=== PATIENT | female | born 1975 | race Caucasian/White ===

== ENCOUNTER → 2017-05-30 09:03 | Outpatient (CLI) | payer MEDICAID, SELFPAY ==
--- NOTE | 2017-05-30 | XR_ITS ---
XR ankle RT min 3V HISTORY: Ankle pain ITS.REASON: B/L PTTD..DA...HT ORDERING PHYSICIAN: Megan Ruggiero DPM PATIENT AGE: 42 years COMPARISON: None FINDINGS: Weightbearing views are performed. There is an old fracture of the distal shaft of the fibula which is well healed. Prominent osteophyte is present along the anterior aspect of the distal tibia. The joint space of the ankle is well preserved. No acute fracture or dislocation. IMPRESSION: 1. Old fibular shaft fracture. 2. Osteophyte along the anterior distal tibia
--- NOTE | 2017-05-30 | XR_ITS ---
XR foot RT min 3V HISTORY: Foot pain ORDERING PHYSICIAN: Megan Ruggiero DPM PATIENT AGE: 42 years COMPARISON: None FINDINGS: Weightbearing views are performed. No fracture of the distal shaft of the fibula. Prominent osteophyte projects off the distal tibia anteriorly. There is moderate pes planus with a reversed Mearys angle. There is mild flexion deformity of the second through fourth toes. No fracture or dislocation. No lytic or blastic change. IMPRESSION: 1. Pes planus. 2. Hammertoe deformity second third and fourth toes. 3. Prominent osteophyte along the anterior distal tibia
--- NOTE | 2017-05-30 | XR_ITS ---
XR foot LT min 3V HISTORY: Foot pain ITS.REASON: B/L PTTD..DA..HT ORDERING PHYSICIAN: Megan Ruggiero DPM PATIENT AGE: 42 years COMPARISON: None FINDINGS: Weightbearing views are performed. There is moderate hammertoe deformity of the third, fourth, and fifth toes. No fracture or dislocation. Mild pes planus. IMPRESSION: Pes planus with hammertoe deformity
--- NOTE | 2017-05-30 | XR_ITS ---
XR ankle LT min 3V HISTORY: Ankle pain ORDERING PHYSICIAN: Megan Ruggiero DPM PATIENT AGE: 42 years COMPARISON: None FINDINGS: Weightbearing views are performed No fracture or dislocation. No lytic or blastic change. There is normal mineralization.. The joint spaces are well-preserved. No significant degenerative/arthritic changes. No erosive changes evident. IMPRESSION: Negative ankle, no acute finding
== END ==
PROVIDERS: PCP Internal Medicine Adolescent Medicine; Visit Provider Podiatrist
DX: M79.671 Pain in right foot (principal); M21.41 Flat foot [pes planus] (acquired), right foot; M21.42 Flat foot [pes planus] (acquired), left foot; M19.071 Primary osteoarthritis, right ankle and foot
CPT/HCPCS: 73610; 73630

== ENCOUNTER → 2017-11-03 10:05 | Outpatient (CLI) | payer MEDICAID, SELFPAY ==
[2017-11-03 10:52] LABS: Basophils # 0.1 K/mm3 (0-0.2); Eosinophils # 0.2 K/mm3 (0.0-0.4); Eosinophils % 2.8 % (0.1-12.0); Hematocrit 30.6 % (37.0-47.0); Hemoglobin 9.1 g/dL (12.2-16.2); Lymphocytes # 1.5 K/mm3 (0.7-4.5); Lymphocytes % 27.7 K/mm3 (10-50); Mean Corpuscular HGB Conc 29.7 g/dL (31.8-35.4); Mean Corpuscular Hemoglobin 21.9 pg (27.0-31.2); Mean Corpuscular Volume 73.8 fl (81-99); Mean Platelet Volume 7.2 fl (7.4-10.4); Monocytes # 0.3 K/mm3 (0.1-1.0); Monocytes % 5.4 % (1.7-9.3); Neutrophils # 3.5 K/mm3 (1.8-7.8); Neutrophils % 63.1 % (37.0-80.0); Platelet Count 471 K/mm3 (142-424); Red Blood Count 4.14 M/mm3 (4.20-5.40); Red Cell Distribution Width 17.8 % (11.5-17.5); White Blood Count 5.5 K/mm3 (4.8-10.8)
[2017-11-03 11:22] LABS: Alanine Aminotransferase 19 U/L (12-78); Albumin Level 3.2 gm/dL (3.4-5.0); Albumin/Globulin Ratio 0.9 (1.1-1.8); Alkaline Phosphatase 108 U/L (46-116); Aspartate Amino Transferase 10 U/L (15-37); Bilirubin,Total 0.2 mg/dL (0.2-1.0); Blood Urea Nitrogen 5 mg/dL (7-18); Calcium 8.8 mg/dL (8.5-10.1); Carbon Dioxide 25 mmol/L (21.0-32.0); Chloride 107 mmol/L (98-107); Chol/HDL Ratio 2.6 (1-3.5); Cholesterol 151 mg/dL (140-200); Creatinine,Serum 0.75 mg/dL (0.55-1.02); Estimated Glomerular Filt Rate 84 ml/min (>60); Free Thyroxine Index 2.3 ug/dL (5.93-13.13); GFR (African American) 102 ML/MIN (>60); Globulin 3.6 gm/dl (1.3-3.2); Glucose 88 mg/dL (74-106); HDL Cholesterol 59 mg/dL (29-89); LDL Cholesterol 73 mg/dL (0-130); Sodium 141 mmol/L (136-145); T4 (Thyroxine) 7.2 ug/dl (4.7-13.3); Total Protein,Serum 6.8 gm/dL (6.4-8.2); Triglycerides 97 mg/dL (30-200); Triiodothryronine (T3) Uptake 32 % (31-39); VLDL Cholesterol 19 mg/dL (0-40)
[2017-11-04 18:30] LABS: Vitamin B12 382 pg/mL (232-1245); Vitamin D 25 Hydroxy 23.8 ng/mL (30.0-100.0)
== END ==
PROVIDERS: Visit Provider Nurse Practitioner Family
DX: Z00.00 Encounter for general adult medical examination without abnormal findings (principal); E03.9 Hypothyroidism, unspecified; E55.9 Vitamin D deficiency, unspecified; E53.8 Deficiency of other specified B group vitamins; Z68.35 Body mass index [BMI] 35.0-35.9, adult
CPT/HCPCS: 36415; 80053; 80061; 82607; 82652; 84436; 84443; 84479; 85025

== ENCOUNTER → 2018-03-22 10:51 | Outpatient (POV) | payer MEDICAID, SELFPAY | PROVIDERS: Visit Provider Podiatrist | DX: Z00.00 Encounter for general adult medical examination without abnormal findings (principal) ==

== ENCOUNTER → 2020-12-22 09:50 | Outpatient (CLI) | payer OTHER, SELFPAY ==
[2020-12-22 11:50] LABS: HCG,Quantitative 3 mIU/ml (0-5.42)
== END ==
PROVIDERS: Visit Provider Nurse Practitioner Obstetrics & Gynecology
DX: N92.6 Irregular menstruation, unspecified (principal)
CPT/HCPCS: 36415; 84702

== ENCOUNTER → 2021-02-04 10:52 | Outpatient (CLI) | payer OTHER, SELFPAY | PROVIDERS: Visit Provider Nurse Practitioner | DX: Z20.822 Contact with and (suspected) exposure to COVID-19 (principal) | CPT/HCPCS: C9803; U0003; U0005 ==

== ENCOUNTER → 2021-02-08 10:32 | Outpatient (CLI) | payer OTHER, SELFPAY ==
[2021-02-08 10:55] LABS: Basophils # 0.1 K/mm3 (0-0.2); Basophils % 0.9 % (0.1-2.0); Eosinophils # 0.3 K/mm3 (0.0-0.4); Eosinophils % 3.2 % (0.1-12.0); Hematocrit 35.2 % (37.0-47.0); Hemoglobin 10.4 g/dL (12.2-16.2); Lymphocytes # 2.4 K/mm3 (0.7-4.5); Lymphocytes % 30.3 % (10-50); Mean Corpuscular HGB Conc 29.6 g/dL (31.8-35.4); Mean Corpuscular Hemoglobin 22.7 pg (27.0-31.2); Mean Corpuscular Volume 76.8 fl (81-99); Mean Platelet Volume 7.5 fl (7.4-10.4); Monocytes # 0.4 K/mm3 (0.1-1.0); Monocytes % 5.3 % (1.7-9.3); Neutrophils # 4.7 K/mm3 (1.8-7.8); Neutrophils % 60.2 % (37.0-80.0); Platelet Count 452 K/mm3 (142-424); Red Blood Count 4.59 M/mm3 (4.20-5.40); Red Cell Distribution Width 18.2 % (11.5-17.5); White Blood Count 7.8 K/mm3 (4.8-10.8)
[2021-02-08 11:56] LABS: Chloride 103 mmol/L (98-107)
[2021-02-08 11:57] LABS: Potassium 4.7 mmoL/L (3.5-5.1); Sodium 140 mmol/L (136-145)
[2021-02-08 11:59] LABS: Blood Urea Nitrogen 6 mg/dl (7-17)
[2021-02-08 12:00] LABS: Alanine Aminotransferase 19 U/L (12-78); Albumin Level 4.1 g/dl (3.5-5.0); Albumin/Globulin Ratio 1.4 (1.1-1.8); Alkaline Phosphatase 109 U/L (38-126); Anion Gap 14.7 mEq/L (5-15); Aspartate Amino Transferase 31 U/L (14-36); Calcium 9.5 mg/dl (8.4-10.2); Carbon Dioxide 27 mmol/L (22.0-30.0); Chol/HDL Ratio 2.6 (1-3.5); Cholesterol 168 mg/dl (140-200); Estimated Glomerular Filt Rate 108 ml/min (>60); GFR (African American) 130 ML/MIN (>60); Glucose 95 mg/dl (74-100); HDL Cholesterol 65 mg/dl (40-60); Total Protein,Serum 7.1 g/dl (6.3-8.2); Triglycerides 97 mg/dl (30-150); VLDL Cholesterol 19 mg/dL (0-40)
[2021-02-08 12:08] LABS: Bilirubin,Total 0.1 mg/dl (0.2-1.3)
[2021-02-08 12:11] LABS: Direct LDL Cholesterol 77.03 mg/dL (100-129)
[2021-02-08 12:16] LABS: Free T4 (Free Thyroxine) 0.93 ng/dl (0.78-2.19)
[2021-02-08 12:31] LABS: Thyroid Stimulating Hormone 9.74 uIU/mL (0.465-4.68)
[2021-02-08 14:57] LABS: Vitamin B12 789 pg/mL (239-931)
== END ==
PROVIDERS: Visit Provider Nurse Practitioner Family
DX: Z00.00 Encounter for general adult medical examination without abnormal findings (principal); E03.9 Hypothyroidism, unspecified; D50.9 Iron deficiency anemia, unspecified; E53.8 Deficiency of other specified B group vitamins; E55.9 Vitamin D deficiency, unspecified
CPT/HCPCS: 36415; 80053; 80061; 82306; 82607; 84439; 84443; 85025

== ENCOUNTER → 2021-05-06 08:56 | Outpatient (CLI) | payer OTHER, SELFPAY | PROVIDERS: PCP Internal Medicine Adolescent Medicine; Visit Provider Nurse Practitioner | DX: Z20.822 Contact with and (suspected) exposure to COVID-19 (principal) | CPT/HCPCS: C9803; U0003; U0005 ==

== ENCOUNTER → 2021-11-08 15:28 | Outpatient (CLI) | payer OTHER, SELFPAY ==
--- NOTE | 2021-11-08 15:31 | XR_ITS ---
FINAL REPORT CLINICAL HISTORY: pain FINDINGS: LEFT FOOT Three views of the left foot demonstrate no acute fracture or dislocation. There is mild multi joint degenerative disease. On the lateral view there is collapse of the midfoot arch. The soft tissues are unremarkable. IMPRESSION: No acute osseous abnormality. Mild degenerative disease with collapse of midfoot arch. Reviewed, Interpreted and Dictated by Sharlene Lui MD Transcribed by Cristel Liu Authenticated and [facility]
--- NOTE | 2021-11-08 15:31 | XR_ITS ---
FINAL REPORT CLINICAL HISTORY: pain FINDINGS: RIGHT FOOT Three views of the right foot demonstrate no acute fracture or dislocation. There is mild multi joint degenerative disease. On the lateral view there is early collapse of the midfoot arch, less severe on the right than on the left. The soft tissues are unremarkable. IMPRESSION: No acute osseous abnormality. Mild degenerative disease with early collapse of midfoot arch. Reviewed, Interpreted and Dictated by Sharlene Lui MD Transcribed by Cristel Liu Authenticated and [facility]
== END ==
PROVIDERS: PCP Internal Medicine Adolescent Medicine; Visit Provider Podiatrist
DX: M79.671 Pain in right foot (principal); M20.41 Other hammer toe(s) (acquired), right foot; M79.672 Pain in left foot; M20.42 Other hammer toe(s) (acquired), left foot
CPT/HCPCS: 73630

== ENCOUNTER → 2021-11-11 10:34 | Outpatient (CLI) | payer OTHER, SELFPAY ==
--- NOTE | 2021-11-11 10:34 | US_ITS ---
FINAL REPORT CLINICAL HISTORY: skin changes, cold extremities, surgical planning(FOOT SURGERY) FINDINGS: ANKLE/BRACHIAL INDICES FINDINGS: Pressure indices are as follows: RIGHT LOWER EXTREMITY: Ankle brachial pressure index: 1.15 Comments: Normal LEFT LOWER EXTREMITY: Ankle brachial pressure index: 1.21 Comments: Normal IMPRESSION: No evidence of significant obstructive peripheral vascular disease of the lower extremities. Reviewed, Interpreted and Dictated by Sharlene Lui MD Transcribed by Frederic Andrade Authenticated and [facility]
== END ==
PROVIDERS: PCP Internal Medicine Adolescent Medicine; Visit Provider Podiatrist
DX: R09.89 Other specified symptoms and signs involving the circulatory and respiratory systems (principal); R20.9 Unspecified disturbances of skin sensation
CPT/HCPCS: 93923

== ENCOUNTER → 2022-04-27 14:44 | Outpatient (CLI) | payer OTHER, SELFPAY ==
--- NOTE | 2022-04-27 | CA_ITS ---
FINAL REPORT TECHNIQUE: Color Doppler, duplex Doppler and compression sonography of the right lower extremity venous system was performed. CLINICAL HISTORY: RT ANKLE REDNESS WITH EDEMA, S/P INJURY FINDINGS: There is no evidence of deep venous thrombosis from the level of the groin to the calf. The veins are patent and compressible. IMPRESSION: No evidence of deep venous thrombosis right lower extremity. Reviewed, Interpreted and Dictated by Declan Omer III, MD Transcribed by Iris Rowan Authenticated and [facility]
--- NOTE | 2022-04-27 15:19 | XR_ITS ---
FINAL REPORT CLINICAL HISTORY: RT LEG PAIN, hx of fx FINDINGS: Right tibia fibula Two views were obtained. There is no acute fracture or dislocation. There is a chronic distal fibular fracture. There are mild degenerative changes of the ankle. There is small chronic calcification inferior to the medial malleolus. IMPRESSION: Degenerative and chronic appearing findings. Reviewed, Interpreted and Dictated by Declan Omer III, MD Transcribed by Iris Rowan Authenticated and [facility]
== END ==
LOC: RT 14:45 → RAD 15:15
PROVIDERS: PCP Internal Medicine Adolescent Medicine; Visit Provider Nurse Practitioner Family
DX: M79.604 Pain in right leg (principal); M79.89 Other specified soft tissue disorders
CPT/HCPCS: 73590; 93971

== ENCOUNTER → 2022-09-23 09:51 | Outpatient (CLI) | payer OTHER, SELFPAY ==
[2022-09-23 10:47] LABS: Basophils % 0.7 % (0.1-2.0); Eosinophils # 0.1 K/mm3 (0.0-0.4); Eosinophils % 1.4 % (0.1-12.0); Hematocrit 40.4 % (37.0-47.0); Hemoglobin 12.8 g/dL (12.2-16.2); Lymphocytes # 1.9 K/mm3 (0.7-4.5); Lymphocytes % 29.4 % (10-50); Mean Corpuscular HGB Conc 31.6 g/dL (31.8-35.4); Mean Corpuscular Hemoglobin 27.5 pg (27.0-31.2); Mean Corpuscular Volume 86.9 fl (81-99); Monocytes # 0.3 K/mm3 (0.1-1.0); Monocytes % 5.1 % (1.7-9.3); Neutrophils # 4.1 K/mm3 (1.8-7.8); Neutrophils % 63.3 % (37.0-80.0); Platelet Count 348 K/mm3 (142-424); Red Blood Count 4.65 M/mm3 (4.20-5.40); Red Cell Distribution Width 15.3 % (11.5-17.5); White Blood Count 6.5 K/mm3 (4.8-10.8)
[2022-09-23 11:07] LABS: Chloride 104 mmol/L (98-107); Sodium 141 mmol/L (136-145)
[2022-09-23 11:09] LABS: Blood Urea Nitrogen 14 mg/dl (7-17); Estimated Glomerular Filt Rate 77 ml/min (>60); GFR (African American) 93 ML/MIN (>60)
[2022-09-23 11:10] LABS: Alanine Aminotransferase 18 U/L (12-78); Albumin Level 4.2 g/dl (3.5-5.0); Albumin/Globulin Ratio 1.4 (1.1-1.8); Alkaline Phosphatase 103 U/L (38-126); Aspartate Amino Transferase 23 U/L (14-36); Bilirubin,Total 0.2 mg/dl (0.2-1.3); Carbon Dioxide 28 mmol/L (22.0-30.0); Total Protein,Serum 7.2 g/dl (6.3-8.2)
[2022-09-23 11:11] LABS: Calcium 9.4 mg/dl (8.4-10.2); Glucose 93 mg/dl (74-100)
[2022-09-23 11:41] LABS: Thyroid Stimulating Hormone 3.95 uIU/mL (0.465-4.68)
[2022-09-23 12:09] LABS: 25-OH Vitamin D, Total 36.7 ng/mL (30-100)
[2022-09-23 12:41] LABS: Vitamin B12 471 pg/mL (239-931)
== END ==
PROVIDERS: PCP Internal Medicine Adolescent Medicine; Visit Provider Nurse Practitioner Family
DX: E03.9 Hypothyroidism, unspecified (principal); E53.8 Deficiency of other specified B group vitamins; E55.9 Vitamin D deficiency, unspecified
CPT/HCPCS: 36415; 80053; 82306; 82607; 84443; 85025

== ENCOUNTER → 2022-09-27 12:01 | Outpatient (CLI) | payer OTHER, SELFPAY ==
--- NOTE | 2022-09-27 12:18 | XR_ITS ---
FINAL REPORT CLINICAL HISTORY: LEFT ANTERIOR PAIN FINDINGS: 3 views of the left knee were obtained. There is no acute fracture or dislocation. There are mild degenerative changes. There is a moderate joint effusion. IMPRESSION: Moderate joint effusion. No acute bony abnormality. Reviewed, Interpreted and Dictated by Declan Omer III, MD Transcribed by Frederic Andrade Authenticated and [facility]
[2022-09-27 12:34] LABS: Basophils # 0.1 K/mm3 (0-0.2); Basophils % 0.9 % (0.1-2.0); Eosinophils # 0.1 K/mm3 (0.0-0.4); Eosinophils % 2.5 % (0.1-12.0); Hematocrit 40.6 % (37.0-47.0); Hemoglobin 12.6 g/dL (12.2-16.2); Lymphocytes # 1.8 K/mm3 (0.7-4.5); Lymphocytes % 30.8 % (10-50); Mean Corpuscular HGB Conc 30.9 g/dL (31.8-35.4); Mean Corpuscular Hemoglobin 26.9 pg (27.0-31.2); Mean Platelet Volume 8.7 fl (7.4-10.4); Monocytes # 0.3 K/mm3 (0.1-1.0); Monocytes % 4.9 % (1.7-9.3); Neutrophils # 3.6 K/mm3 (1.8-7.8); Platelet Count 342 K/mm3 (142-424); Red Blood Count 4.67 M/mm3 (4.20-5.40); Red Cell Distribution Width 15.4 % (11.5-17.5); White Blood Count 5.9 K/mm3 (4.8-10.8)
[2022-09-27 12:44] LABS: Uric Acid 4.9 mg/dl (2.5-6.2)
[2022-09-27 12:48] LABS: C-Reactive Protein 6.6 mg/L (0-4)
[2022-09-27 13:22] LABS: Erythrocyte Sedimentation Rate 22 mm/hr (0-20)
== END ==
PROVIDERS: PCP Nurse Practitioner Family; Visit Provider Nurse Practitioner Family
DX: M25.562 Pain in left knee (principal); M25.462 Effusion, left knee
CPT/HCPCS: 36415; 73562; 84550; 85025; 85651; 86140

== ENCOUNTER → 2022-10-10 15:27 | Outpatient (CLI) | payer OTHER, SELFPAY ==
--- NOTE | 2022-10-10 15:30 | MR_ITS ---
FINAL REPORT CLINICAL HISTORY: Lt knee pain. LEFT KNEE PAIN WORSE ON LATERAL SIDE. NO INJURY OR TRAUMA. KNEE INSTABILITY. FINDINGS: Multiplanar MR imaging of the left knee was performed without contrast. There is a tear of the posterior horn of the lateral meniscus. The medial meniscus is intact. The anterior and posterior cruciate ligaments are intact. The medial collateral ligament and lateral ligamentous complex are intact. The patellar and quadriceps tendons are intact. There is no evidence of fracture. There are mild degenerative changes with moderate chondromalacia. A moderate sized joint effusion is seen. The musculature is intact. There are multiple posterior ganglion cysts measuring up to 13 mm. IMPRESSION: Tear of the posterior horn of the lateral meniscus. Posterior ganglion cysts measuring 13 mm. Mild degenerative changes with moderate chondromalacia. Moderate joint effusion. Reviewed, Interpreted and Dictated by Declan Omer III, MD Transcribed by Pia Hooper Authenticated and [facility]
== END ==
PROVIDERS: PCP Nurse Practitioner Family; Visit Provider Orthopaedic Surgery
DX: M25.562 Pain in left knee (principal)
CPT/HCPCS: 73721

== ENCOUNTER 2022-10-19 10:58 | Outpatient (RCR) | payer OTHER, SELFPAY | END 2022-10-19 12:00 | disposition home or self-care (01) | LOC: PT 10:58 | PROVIDERS: Visit Provider Orthopaedic Surgery | DX: M17.12 Unilateral primary osteoarthritis, left knee (principal); M23.92 Unspecified internal derangement of left knee; S83.282A Other tear of lateral meniscus, current injury, left knee, initial encounter | CPT/HCPCS: 97760 ==

== ENCOUNTER → 2022-10-27 09:45 | Outpatient (CLI) | payer OTHER, SELFPAY ==
--- NOTE | 2022-10-27 09:49 | CA_ITS ---
FINAL REPORT TECHNIQUE: Color Doppler, duplex Doppler and compression sonography of the right lower extremity venous system was performed. CLINICAL HISTORY: .EDEMA PAIN LOWER LEG ANKLE COMPARISON: None FINDINGS: There is no evidence of deep venous thrombosis from the level of the groin to the calf. The veins are patent and compressible. IMPRESSION: No evidence of deep venous thrombosis right lower extremity. Reviewed, Interpreted and Dictated by Declan Omer III, MD Transcribed by Sarahy Jeffrey Authenticated and [facility]
== END ==
PROVIDERS: PCP Nurse Practitioner Family; Visit Provider Nurse Practitioner Family
DX: M79.661 Pain in right lower leg (principal)
CPT/HCPCS: 93971

== ENCOUNTER → 2022-11-08 10:10 | Outpatient (CLI) | payer OTHER, SELFPAY ==
--- NOTE | 2022-11-08 10:23 | XR_ITS ---
FINAL REPORT CLINICAL HISTORY: Ankle Pain FINDINGS: RIGHT ANKLE: Three weightbearing views of the right ankle were obtained. There is no acute fracture or dislocation. Moderate degenerative change. Mortise is intact. Old healed fracture of the distal fibula. There is no soft tissue abnormality. IMPRESSION: Moderate degenerative change. Reviewed, Interpreted and Dictated by Gwyn Olivo MD Transcribed by Frederic Andrade Authenticated and [facility]
--- NOTE | 2022-11-08 10:23 | XR_ITS ---
FINAL REPORT CLINICAL HISTORY: swelling FINDINGS: RIGHT CALCANEUS 2 views were obtained. There is no acute fracture. No significant spurring or erosion. There is no soft tissue abnormality. IMPRESSION: No acute process. Reviewed, Interpreted and Dictated by Gwyn Olivo MD Transcribed by Frederic Andrade Authenticated and [facility]
--- NOTE | 2022-11-08 10:23 | XR_ITS ---
FINAL REPORT CLINICAL HISTORY: Foot Pain FINDINGS: 3 weightbearing views of the right foot were obtained. There is no acute fracture or dislocation. Severe pes planus deformity. Moderate degenerative change of the subtalar and talonavicular joints. Hammertoe deformity involving the first through fifth digits. IMPRESSION: Moderate degenerative changes. Reviewed, Interpreted and Dictated by Gwyn Olivo MD Transcribed by Frederic Andrade Authenticated and . [facility]
[2022-11-08 10:26] LABS: Basophils # 0.1 K/mm3 (0-0.2); Basophils % 1.1 % (0.1-2.0); Eosinophils # 0.2 K/mm3 (0.0-0.4); Eosinophils % 2.5 % (0.1-12.0); Hemoglobin 13.8 g/dL (12.2-16.2); Lymphocytes # 1.7 K/mm3 (0.7-4.5); Lymphocytes % 26.5 % (10-50); Mean Corpuscular HGB Conc 32.1 g/dL (31.8-35.4); Mean Corpuscular Volume 87.3 fl (81-99); Monocytes # 0.4 K/mm3 (0.1-1.0); Monocytes % 5.8 % (1.7-9.3); Neutrophils # 4.1 K/mm3 (1.8-7.8); Neutrophils % 64.1 % (37.0-80.0); Platelet Count 351 K/mm3 (142-424); Red Blood Count 4.93 M/mm3 (4.20-5.40); Red Cell Distribution Width 14.7 % (11.5-17.5); White Blood Count 6.4 K/mm3 (4.8-10.8)
[2022-11-08 11:19] LABS: Alanine Aminotransferase 19 U/L (12-78); Albumin/Globulin Ratio 1.4 (1.1-1.8); Alkaline Phosphatase 119 U/L (38-126); Anion Gap 9.9 mEq/L (5-15); Aspartate Amino Transferase 21 U/L (14-36); Bilirubin,Total 0.3 mg/dl (0.2-1.3); Blood Urea Nitrogen 17 mg/dl (7-17); Calcium 9.4 mg/dl (8.4-10.2); Carbon Dioxide 32 mmol/L (22.0-30.0); Chloride 102 mmol/L (98-107); Estimated Glomerular Filt Rate 77 ml/min (>60); GFR (African American) 93 ML/MIN (>60); Globulin 2.8 g/dL (1.3-3.2); Glucose 97 mg/dl (74-100); Potassium 3.9 mmoL/L (3.5-5.1); Sodium 140 mmol/L (136-145); Total Protein,Serum 6.8 g/dl (6.3-8.2); Uric Acid 6.8 mg/dl (2.5-6.2)
[2022-11-08 11:24] LABS: C-Reactive Protein 9.6 mg/L (0-4)
[2022-11-08 11:27] LABS: Erythrocyte Sedimentation Rate 18 mm/hr (0-20)
[2022-11-08 11:49] LABS: Thyroid Stimulating Hormone 2.82 uIU/mL (0.465-4.68)
[2022-11-08 12:26] LABS: Vitamin B12 516 pg/mL (239-931)
[2022-11-08 12:34] LABS: Folate 5.01 ng/mL
[2022-11-08 14:17] LABS: Hemoglobin A1C 5.3 % (4.0-6.0)
[2022-11-09 16:19] LABS: RA Latex Turbid. <10.0 IU/mL (<14.0)
[2022-11-10 11:14] LABS: Antinuclear Antibodies, IFA Negative (.)
[2022-11-16 22:18] LABS: 1,25 Dihydroxy Vitamin D 57 pg/mL (.); 1,25-Dihydroxy, Vitamin D-2 <10 pg/mL (.); 1,25-Dihydroxy, Vitamin D-3 57 pg/mL (.)
== END ==
PROVIDERS: PCP Internal Medicine Adolescent Medicine; Visit Provider Podiatrist
DX: R60.9 Edema, unspecified (principal); M79.671 Pain in right foot; M25.571 Pain in right ankle and joints of right foot; E66.9 Obesity, unspecified; Z68.31 Body mass index [BMI] 31.0-31.9, adult; R79.82 Elevated C-reactive protein (CRP)
CPT/HCPCS: 36415; 73610; 73630; 73650; 80053; 82607; 82652; 82746; 83036; 84443; 84550; 85025; 85651; 86038; 86140; 86431

== ENCOUNTER → 2022-11-17 09:45 | Outpatient (CLI) | payer OTHER, SELFPAY ==
--- NOTE | 2022-11-17 09:55 | ECG_ITS ---
APPROVED REPORT Exam: Resting ECG HR:54 bpm ECG Measurements Heart Rate 54 AXES PA 143 P 47 QRSd 94 QRS 54 QT 415 T 55 QTc 402 Conclusion SINUS BRADYCARDIA MINIMAL ST DEPRESSION [0.025+ mV ST DEPRESSION] BORDERLINE ECG UNCONFIRMED REPORT Electronically signed by : Santhosh Ward MD 11/18/2022 17:45:42
--- NOTE | 2022-11-17 09:58 | XR_ITS ---
FINAL REPORT CLINICAL HISTORY: Pre op knee surgery , smoker FINDINGS: Two views of the chest were obtained. The heart size and pulmonary vascularity are within normal limits. The mediastinum is normal. No acute pulmonary abnormality is identified. There is no pneumothorax. The bony thorax is intact. IMPRESSION: No active cardiopulmonary disease. Reviewed, Interpreted and Dictated by Declan Omer III, MD Transcribed by Iris Rowan Authenticated and . [facility]
[2022-11-17 10:52] LABS: Basophils % 0.7 % (0.1-2.0); Eosinophils # 0.2 K/mm3 (0.0-0.4); Eosinophils % 4.1 % (0.1-12.0); Hematocrit 40.3 % (37.0-47.0); Hemoglobin 12.8 g/dL (12.2-16.2); Lymphocytes # 1.7 K/mm3 (0.7-4.5); Lymphocytes % 33.6 % (10-50); Mean Corpuscular HGB Conc 31.8 g/dL (31.8-35.4); Mean Corpuscular Hemoglobin 27.4 pg (27.0-31.2); Mean Corpuscular Volume 85.9 fl (81-99); Mean Platelet Volume 8.5 fl (7.4-10.4); Monocytes # 0.4 K/mm3 (0.1-1.0); Monocytes % 7.2 % (1.7-9.3); Neutrophils # 2.7 K/mm3 (1.8-7.8); Neutrophils % 54.4 % (37.0-80.0); Platelet Count 306 K/mm3 (142-424); Red Blood Count 4.69 M/mm3 (4.20-5.40); Red Cell Distribution Width 14.9 % (11.5-17.5)
[2022-11-17 11:18] LABS: Hemoglobin A1C 5.2 % (4.0-6.0)
[2022-11-17 11:44] LABS: Alanine Aminotransferase 20 U/L (12-78); Albumin Level 3.9 g/dl (3.5-5.0); Albumin/Globulin Ratio 1.4 (1.1-1.8); Alkaline Phosphatase 114 U/L (38-126); Aspartate Amino Transferase 25 U/L (14-36); Bilirubin,Total 0.2 mg/dl (0.2-1.3); Blood Urea Nitrogen 11 mg/dl (7-17); Calcium 9.4 mg/dl (8.4-10.2); Carbon Dioxide 30 mmol/L (22.0-30.0); Chloride 105 mmol/L (98-107); Estimated Glomerular Filt Rate 89 ml/min (>60); GFR (African American) 108 ML/MIN (>60); Globulin 2.8 g/dL (1.3-3.2); Glucose 96 mg/dl (74-100); Sodium 141 mmol/L (136-145); Total Protein,Serum 6.7 g/dl (6.3-8.2)
== END ==
LOC: LAB 09:45
PROVIDERS: PCP Internal Medicine Adolescent Medicine; Visit Provider Orthopaedic Surgery
DX: Z01.818 Encounter for other preprocedural examination (principal); S83.282A Other tear of lateral meniscus, current injury, left knee, initial encounter
CPT/HCPCS: 36415; 71046; 80053; 83036; 85025; 93005

== ENCOUNTER 2022-11-22 08:48 | Day surgery (SDC) | payer OTHER, SELFPAY ==
[2022-11-18 12:36] VITALS: BMI 31.1
[2022-11-22] VITALS (11 sets, daily range): BP systolic 110–155; BP diastolic 57–99; PULSE 62–76; RESP 15–18; TEMP 36.2–43; O2SAT 93–100
--- NOTE | 2022-11-22 09:38 | P.PNANES_ITS ---
[facility] Disclaimer: The information contained in this section may have been updated after the patient was seen, as this information can be updated by other users. Medical History Allergies History of anemia History of COVID-19 Hypertension Hypothyroid Surgical History History of cholecystectomy Family History Other Family history of cancer Family history of diabetes mellitus type II Social History Smoking Status: Current every day smoker tobacco type: cigarettes packs per day: 1 alcohol intake: current counseling provided: none substance use type: denies use current occupational status: employed Travel in the last 8 weeks: None [facility] Anesthesia Checklist Patient Identification Patient Identification: Arm Band Structural Data Admitted From: Home Planned Operative Procedure/s: Left Knee Arthroscopy, Parial Lateral Meniscectomy Consent for Planned Operative Procedure(s) Verified: Yes Verified Documents: Surgical Consent and History and Physical NPO Status Verified Time NPO: 00:00 Additional verifications Anesthesia Reactions: No Hx Blood Transfusions: No Airway Assessment Mallampati Score:: Class II C-Spine Mobility Assessed: Yes TMJ Mobility Assessed: Yes Dentition: Good Dentition Neurological Assessment Level of Consciousness: Awake and Alert Anesthesia Plan Anesthesia Risk discussed: Yes Anesthesia Plan: Verified ASA Class: II Anesthesia Type: General
[2022-11-22 09:51] LABS: HCG Qualitative, Serum Negative (Negative)
--- NOTE | 2022-11-22 10:58 | EXP.OP.NOTE ---
Date of procedure: 11/22/22 Pre-op Diagnosis:: Left knee lateral meniscus tear Post-op Diagnosis:: Left knee lateral meniscus tear Procedure performed:: Left knee arthroscopy with partial lateral meniscectomy Surgeon:: Orlin Galan MD Encapsulator(s):: None [employer] TESTING:: Other Anesthesia: GETA and local Estimated blood loss (mL): 5 Clinical Note:: Left knee MRI 10/10/2022 reveals complex tear posterior horn and body of the lateral meniscus with horizontal cleavage component. Mild patellofemoral and lateral compartment chondromalacia. There is a small effusion and ligaments are intact. Lilian is a pleasant 47-year-old female with left knee pain and swelling secondary to exacerbation of underlying mild osteoarthritis and a lateral meniscus tear seen on MRI. She takes meloxicam for ankle pain. 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 No relief with a left knee aspiration and cortisone injection in September. At this point she is reasonable candidate for left knee arthroscopy with partial lateral meniscectomy. We discussed all the risks, benefits and alternatives to surgery and she agrees to proceed. She understands risks to include but are not limited to infection, pain, stiffness, neurovascular injury and medical risks associated with surgery. She understands the rehab course involved. Answered all questions to her satisfaction and she is comfortable with the plan. Surgical consent form was signed. Operative findings:: Left knee complex tear posterior horn and body of the lateral meniscus with horizontal cleavage component. Mild tricompartmental chondromalacia. Operative note:: The patient was seen in the preoperative holding area. The left knee was marked to confirm the correct operative site. She received clindamycin 900 mg IV prophylactic antibiotics within 1 hour of incision time. She was brought back to the OR. General anesthesia induced without difficulty. Left lower extremity prepped and draped in usual sterile fashion. Timeout performed to confirm left knee arthroscopy on patient Lilian Welch. I made an anterolateral viewing portal with an 11 blade scalpel arthroscope was introduced into the knee joint. I then made an anteromedial portal localizing this with a spinal needle and this incision was made with an 11 blade and dilated with a trocar. Diagnostic arthroscopy commenced. She had some mild grade II-III chondromalacia of the trochlea and patella. No full-thickness cartilage loss. This was debrided with the 4.0 mm shaver back to a smooth stable border. Evaluation of the medial compartment revealed small area of grade III-IV chondromalacia central aspect medial femoral condyle. Edges of this were debrided with a shaver back to a smooth stable border. Otherwise minimal chondromalacia in the medial compartment. Medial meniscus was intact. Cruciate ligaments intact. She was placed in the [id number] position. She was seen to have a complex tear of the posterior horn and body of the lateral meniscus with a lot of frayed tissue and a horizontal cleavage component. This was treated with a partial lateral meniscectomy using combination of an upbiter and a 4.0 mm shaver to resect the frayed tissue back to a smooth stable border. Resected the unstable inferior flap component of the horizontal cleavage tear. Debrided some diffuse grade 2-3 chondromalacia of the lateral femoral condyle with the shaver. No full-thickness cartilage loss. At this time arthroscopy instruments were removed from the joint. Scope fluid suctioned and drained from the joint. Portals closed with 4-0 Monocryl subcuticular sutures. I injected 20 cc of half percent Naropin from the superior lateral approach for local anesthetic. Sterile dressings applied with Steri-Strips, 4 x 4's, ABD, soft roll and Freddie bandage. Anesthesia reversed without difficulty. Transferred to recovery in stable condition. Tourniquet time (min): 0 Condition: stable Disposit
--- NOTE | 2022-11-22 11:03 | EXP.ANES.I ---
[facility] Anesthesia Record Part I Anesthesia Record I Intake, IV Amount: 600 Hydration: Adequate Estimated blood loss (mL): 20 Urine output (mL): 0 Blood Products used (#): none Blood Pressure: 128/99 SaO2: 93 Pulse Rate: 76 Airway Patency: Patent Respiratory Rate: 18 Temperature: 97.2 F Pain scale (0-10): 0 Nausea: No Vomiting: No Patient is:: Drowsy and Stable Stable to PACU at:: 10:58
--- NOTE | 2022-11-23 10:37 | P.PNANES_ITS ---
[facility] Anesthesia Record Part II Anesthesia Record Part II Discharge Time: 11:28 Destination: Surgical Day Care (OP Surgery) PACU nurse assessment reviewed?: Yes Patient Condition:: Good Anesthesia Complications:: None Swallowing reflex intact?: Yes Airway Patency: Patent Cyanosis?: No Blood Pressure: 127/82 SaO2: 99 Respiratory Rate: 16 Pulse Rate: 62 Temperature: 97.2 F Mental Status: Alert & Oriented Pain level:: 5 Nausea and/or vomitting:: None Intake, IV Amount: 0 Hydration: Adequate
[2022-11-23 10:38] VITALS: BP 127/82; PULSE 62; RESP 16; TEMP 36.2; O2SAT 99
== END 2022-11-22 12:10 | disposition home or self-care (01) ==
PROVIDERS: PCP Internal Medicine Adolescent Medicine; Visit Provider Orthopaedic Surgery
PROC: (CPT 29870; principal; 2022-11-22 10:15)
DX: S83.282A Other tear of lateral meniscus, current injury, left knee, initial encounter (principal); Z72.0 Tobacco use
CPT/HCPCS: 29881; 84703; 96374; J2405

== ENCOUNTER 2023-05-16 21:09 | Outpatient (CLI) | payer OTHER, SELFPAY | END 2023-05-16 23:59 | LOC: LAB.DROPOF 21:09 | PROVIDERS: PCP Student in an Organized Health Care Education/Training Program; Visit Provider Student in an Organized Health Care Education/Training Program | DX: J02.9 Acute pharyngitis, unspecified (principal); B95.0 Streptococcus, group A, as the cause of diseases classified elsewhere | CPT/HCPCS: 87070 ==

== ENCOUNTER 2023-05-20 12:05 | Outpatient (CLI) | payer OTHER, SELFPAY ==
[2023-05-20 12:24] LABS: Basophils # 0.1 K/mm3 (0-0.2); Basophils % 1.2 % (0.1-2.0); Eosinophils # 0.2 K/mm3 (0.0-0.4); Eosinophils % 2.5 % (0.1-12.0); Hematocrit 40.8 % (37.0-47.0); Hemoglobin 13.4 g/dL (12.2-16.2); Lymphocytes # 2.1 K/mm3 (0.7-4.5); Mean Corpuscular HGB Conc 32.8 g/dL (31.8-35.4); Mean Corpuscular Hemoglobin 29.9 pg (27.0-31.2); Mean Corpuscular Volume 91.1 fl (81-99); Mean Platelet Volume 8.4 fl (7.4-10.4); Monocytes # 0.4 K/mm3 (0.1-1.0); Neutrophils # 5.1 K/mm3 (1.8-7.8); Neutrophils % 64.4 % (37.0-80.0); Platelet Count 423 K/mm3 (142-424); Red Blood Count 4.48 M/mm3 (4.20-5.40); Red Cell Distribution Width 14.6 % (11.5-17.5); White Blood Count 7.9 K/mm3 (4.8-10.8)
[2023-05-20 13:46] LABS: Alanine Aminotransferase 18 U/L (12-78); Albumin Level 3.7 g/dl (3.5-5.0); Albumin/Globulin Ratio 1.3 (1.1-1.8); Alkaline Phosphatase 110 U/L (38-126); Anion Gap 10.2 mEq/L (5-15); Aspartate Amino Transferase 22 U/L (14-36); Bilirubin,Total 0.2 mg/dl (0.2-1.3); Blood Urea Nitrogen 8 mg/dl (7-17); Calcium 9.4 mg/dl (8.4-10.2); Carbon Dioxide 29 mmol/L (22.0-30.0); Chloride 106 mmol/L (98-107); Estimated Glomerular Filt Rate 76 ml/min (>60); GFR (African American) 92 ML/MIN (>60); Globulin 2.8 g/dL (1.3-3.2); Glucose 90 mg/dl (74-100); Potassium 4.2 mmoL/L (3.5-5.1); Sodium 141 mmol/L (136-145); Total Protein,Serum 6.5 g/dl (6.3-8.2)
== END 2023-05-20 23:59 ==
LOC: LAB 12:06
PROVIDERS: Nurse Practitioner Family; PCP Internal Medicine Adolescent Medicine; Visit Provider Internal Medicine Adolescent Medicine
DX: R21 Rash and other nonspecific skin eruption (principal)
CPT/HCPCS: 36415; 80053; 85025; 87070

== ENCOUNTER 2023-09-26 08:50 | Outpatient (CLI) | payer OTHER, SELFPAY ==
--- NOTE | 2023-09-26 08:58 | XR_ITS ---
FINAL REPORT CLINICAL HISTORY: left sided LBP with sciatica COMPARISON: None FINDINGS: THORACIC SPINE SERIES 3 views of the thoracic spine were obtained. There is no fracture present. There is no malalignment. There is S-shaped curvature of the thoracic spine. Moderate degenerative change is noted. IMPRESSION: Degenerative change without acute process LUMBOSACRAL SPINE SERIES Five views of the lumbosacral spine were obtained. Levoscoliosis is noted. There is 11 mm of anterolisthesis of L4 on L5. There is severe L4-5 disc space narrowing. Bilateral L4 pars defects are noted. IMPRESSION: Severe degenerative changes. Bilateral L4 pars defects. Reviewed, Interpreted and Dictated by Declan Omer III, MD Transcribed by Caridad Scruggs Authenticated and [facility]
== END 2023-09-26 23:59 | disposition home or self-care (01) ==
LOC: RAD 08:50
PROVIDERS: PCP Nurse Practitioner Family; Visit Provider Physician Assistant
DX: M54.42 Lumbago with sciatica, left side (principal)
CPT/HCPCS: 72084

== ENCOUNTER 2023-10-13 16:00 | Outpatient (RCR) | payer OTHER, SELFPAY | END 2023-10-13 16:05 | disposition home or self-care (01) | LOC: PT 16:00 | PROVIDERS: Visit Provider Physician Assistant | DX: M54.42 Lumbago with sciatica, left side (principal) | CPT/HCPCS: 97163 ==

== ENCOUNTER 2023-11-28 13:02 | Outpatient (CLI) | payer OTHER, SELFPAY ==
--- NOTE | 2023-11-28 13:05 | XR_ITS ---
FINAL REPORT CLINICAL HISTORY: foot pain COMPARISON: None FINDINGS: LEFT FOOT: Three views of the left foot were obtained. There is no acute fracture or dislocation. A pes planus deformity is present. Mild degenerative change is present. Mild soft tissue calcifications are present as well. IMPRESSION: Mild degenerative change with a pes planus deformity. Reviewed, Interpreted and Dictated by Declan Omer III, MD Transcribed by Sarahy Jeffrey Authenticated and [facility]
--- NOTE | 2023-11-28 13:05 | XR_ITS ---
FINAL REPORT CLINICAL HISTORY: Foot Pain COMPARISON: None FINDINGS: RIGHT FOOT: Three views of the right foot were obtained. There is no acute fracture or dislocation. Mild degenerative change is present. There is a pes planus deformity noted. Soft tissue calcifications are present. IMPRESSION: Mild degenerative change with a pes planus deformity, no acute bony abnormality. Reviewed, Interpreted and Dictated by Declan Omer III, MD Transcribed by Sarahy Jeffrey Authenticated and [facility]
== END 2023-11-28 23:59 | disposition home or self-care (01) ==
LOC: RAD 13:02
PROVIDERS: PCP Internal Medicine Adolescent Medicine; Visit Provider Podiatrist
DX: M79.671 Pain in right foot (principal); M79.672 Pain in left foot
CPT/HCPCS: 73630

== ENCOUNTER 2023-12-21 08:47 | Outpatient (CLI) | payer OTHER, SELFPAY ==
--- NOTE | 2023-12-21 08:47 | XR_ITS ---
FINAL REPORT TECHNIQUE: Bone mineral density was calculated of the lumbar spine and hip. CLINICAL HISTORY: evaluate bone density for surgical planning COMPARISON: None FINDINGS: Using L1-4, the bone mineral density of the spine is 1.017 g/cm2, corresponding to T-score of -0.3. Using the left hip, the bone mineral density of the femoral neck is 0.751 g/cm2, corresponding to a T-score of -0.9. NOTE: T-score: Standard deviation compared with peak bone mass of young adult mean. *Following the recommendations of the International Society of Bone densitometry, classification of hip BMD is based on the lower of two T-scores; total hip or femoral neck. IMPRESSION: Normal bone mineral density of the lumbar spine and left hip. Reviewed, Interpreted and Dictated by Declan Omer III, MD Transcribed by Sarahy Jeffrey Authenticated and [facility]
--- NOTE | 2023-12-21 09:13 | XR_ITS ---
FINAL REPORT CLINICAL HISTORY: Ankle Pain FINDINGS: LEFT ANKLE Three views demonstrate no acute fracture or dislocation. The visualized joint spaces are normally aligned. There are mild degenerative changes. Scattered soft tissue calcifications are noted. The soft tissues are otherwise unremarkable. IMPRESSION: No acute bony abnormality. Reviewed, Interpreted and Dictated by Declan Omer III, MD Transcribed by Pia Hooper Authenticated and [facility]
--- NOTE | 2023-12-21 09:13 | XR_ITS ---
FINAL REPORT CLINICAL HISTORY: Ankle Pain FINDINGS: RIGHT ANKLE 3 views of the right ankle were obtained. There is no acute fracture or dislocation. The mortise is intact. There are mild degenerative changes. There is a chronic fracture of the distal fibula. Scattered soft tissue calcifications are noted. IMPRESSION: No acute bony abnormality. Reviewed, Interpreted and Dictated by Declan Omer III, MD Transcribed by Pia Hooper Authenticated and [facility]
--- NOTE | 2023-12-21 09:13 | XR_ITS ---
FINAL REPORT CLINICAL HISTORY: Left foot pain COMPARISON: None FINDINGS: Left FOOT: Three views of the left foot were obtained. There is no acute fracture or dislocation. Mild degenerative changes are noted. There is no soft tissue abnormality. A pes planus deformity is noted. IMPRESSION: No acute bony abnormality. Reviewed, Interpreted and Dictated by Declan Omer III, MD Transcribed by Nicci Whitaker Authenticated and . [facility]
--- NOTE | 2023-12-21 09:13 | XR_ITS ---
FINAL REPORT CLINICAL HISTORY: Foot pain FINDINGS: RIGHT FOOT 3 views of the right foot were obtained. There is no acute fracture or dislocation. there are mild degenerative changes. Pes planus deformity is noted. Visualized joint spaces are normally aligned. Soft tissues are unremarkable. IMPRESSION: No acute bony abnormality. Reviewed, Interpreted and Dictated by Declan Omer III, MD Transcribed by Pia Hooper Authenticated and [facility]
[2023-12-21 11:59] LABS: Alanine Aminotransferase 17 U/L (12-78); Alkaline Phosphatase 85 U/L (38-126); Aspartate Amino Transferase 23 U/L (14-36); Bilirubin,Total 0.4 mg/dl (0.2-1.3); Blood Urea Nitrogen 11 mg/dl (7-17); Calcium 9.4 mg/dl (8.4-10.2); Chloride 107 mmol/L (98-107); Estimated Glomerular Filt Rate 89 ml/min (>60); GFR (African American) 108 ML/MIN (>60); Glucose 66 mg/dl (74-100); Sodium 139 mmol/L (136-145); Total Protein,Serum 6.5 g/dl (6.3-8.2)
[2023-12-21 12:00] LABS: Potassium 4.1 mmoL/L (3.5-5.1)
[2023-12-21 12:05] LABS: C-Reactive Protein 5.7 mg/L (0-4)
[2023-12-21 12:30] LABS: Thyroid Stimulating Hormone 4.77 uIU/mL (0.465-4.68)
[2023-12-21 13:07] LABS: Folate 6.57 ng/mL; Vitamin B12 681 pg/mL (239-931)
[2023-12-21 13:09] LABS: Erythrocyte Sedimentation Rate 50 mm/hr (0-20)
[2023-12-21 13:12] LABS: Basophils # 0.1 K/mm3 (0-0.2); Basophils % 1.2 % (0.1-2.0); Eosinophils # 0.2 K/mm3 (0.0-0.4); Eosinophils % 4.3 % (0.1-12.0); Hematocrit 41.6 % (37.0-47.0); Lymphocytes # 1.8 K/mm3 (0.7-4.5); Lymphocytes % 36.5 % (10-50); Mean Corpuscular HGB Conc 31.2 g/dL (31.8-35.4); Mean Corpuscular Hemoglobin 29.5 pg (27.0-31.2); Mean Corpuscular Volume 94.3 fl (81-99); Mean Platelet Volume 9.1 fl (7.4-10.4); Monocytes # 0.4 K/mm3 (0.1-1.0); Monocytes % 8.1 % (1.7-9.3); Neutrophils # 2.4 K/mm3 (1.8-7.8); Neutrophils % 49.9 % (37.0-80.0); Platelet Count 316 K/mm3 (142-424); Red Blood Count 4.42 M/mm3 (4.20-5.40); Red Cell Distribution Width 14.6 % (11.5-17.5); White Blood Count 4.9 K/mm3 (4.8-10.8)
[2023-12-21 14:24] LABS: Albumin Level 3.8 g/dl (3.5-5.0); Albumin/Globulin Ratio 1.4 (1.1-1.8); Globulin 2.7 g/dL (1.3-3.2)
[2023-12-21 14:27] LABS: Anion Gap 9.1 mEq/L (5-15); Carbon Dioxide 27 mmol/L (22.0-30.0)
[2024-01-02 09:22] LABS: 1,25 Dihydroxy Vitamin D 63 pg/mL (.); 1,25-Dihydroxy, Vitamin D-2 <10 pg/mL (.); 1,25-Dihydroxy, Vitamin D-3 62 pg/mL (.)
== END 2023-12-21 23:59 | disposition home or self-care (01) ==
PROVIDERS: PCP Internal Medicine Adolescent Medicine; Visit Provider Podiatrist
DX: M25.371 Other instability, right ankle (principal); M25.372 Other instability, left ankle; M19.071 Primary osteoarthritis, right ankle and foot; M79.671 Pain in right foot; M79.672 Pain in left foot; M25.571 Pain in right ankle and joints of right foot; M25.572 Pain in left ankle and joints of left foot; M20.41 Other hammer toe(s) (acquired), right foot; M20.42 Other hammer toe(s) (acquired), left foot; M76.821 Posterior tibial tendinitis, right leg
CPT/HCPCS: 36415; 73610; 73630; 77080; 80050; 80053; 82607; 82652; 82746; 84443; 85025; 85651; 86140

== ENCOUNTER 2024-04-29 10:22 | Outpatient (CLI) | payer OTHER, SELFPAY | END 2024-04-29 23:59 | disposition home or self-care (01) | LOC: LAB.DROPOF 04-30 10:29 | PROVIDERS: PCP Podiatrist; Visit Provider Podiatrist | DX: S90.424A Blister (nonthermal), right lesser toe(s), initial encounter (principal) | CPT/HCPCS: 87070; 87205 ==

== ENCOUNTER 2024-05-14 10:10 | Outpatient (CLI) | payer OTHER, SELFPAY ==
[2024-05-14 10:32] LABS: Basophils # 0.1 K/mm3 (0-0.2); Basophils % 0.9 % (0.1-2.0); Eosinophils # 0.1 K/mm3 (0.0-0.4); Eosinophils % 1.5 % (0.1-12.0); Hematocrit 40.5 % (37.0-47.0); Hemoglobin 13.5 g/dL (12.2-16.2); Lymphocytes # 1.8 K/mm3 (0.7-4.5); Lymphocytes % 33.4 % (10-50); Mean Corpuscular HGB Conc 33.3 g/dL (31.8-35.4); Mean Corpuscular Hemoglobin 29.9 pg (27.0-31.2); Mean Corpuscular Volume 89.8 fl (81-99); Mean Platelet Volume 10.2 fl (7.4-10.4); Monocytes # 0.4 K/mm3 (0.1-1.0); Monocytes % 6.4 % (1.7-9.3); Neutrophils # 3.1 K/mm3 (1.8-7.8); Neutrophils % 57.6 % (37.0-80.0); Platelet Count 364 K/mm3 (142-424); Red Blood Count 4.51 M/mm3 (4.20-5.40); Red Cell Distribution Width 13.7 % (11.5-17.5); White Blood Count 5.5 K/mm3 (4.8-10.8)
[2024-05-14 11:03] LABS: Chol/HDL Ratio 2.3 (1-3.5); Cholesterol 178 mg/dl (140-200); HDL Cholesterol 76 mg/dl (40-60); Triglycerides 60 mg/dl (30-150); VLDL Cholesterol 12 mg/dL (0-40)
[2024-05-14 11:04] LABS: Alanine Aminotransferase 17 U/L (12-78); Albumin Level 4.2 g/dl (3.5-5.0); Albumin/Globulin Ratio 1.6 (1.1-1.8); Alkaline Phosphatase 109 U/L (38-126); Anion Gap 12.5 mEq/L (5-15); Aspartate Amino Transferase 24 U/L (14-36); Bilirubin,Total 0.4 mg/dl (0.2-1.3); Blood Urea Nitrogen 18 mg/dl (7-17); Calcium 9.8 mg/dl (8.4-10.2); Carbon Dioxide 31 mmol/L (22.0-30.0); Chloride 99 mmol/L (98-107); Estimated Glomerular Filt Rate 89 ml/min (>60); GFR (African American) 108 ML/MIN (>60); Globulin 2.6 g/dL (1.3-3.2); Glucose 103 mg/dl (74-100); Potassium 4.5 mmoL/L (3.5-5.1); Sodium 138 mmol/L (136-145); Total Protein,Serum 6.8 g/dl (6.3-8.2); Uric Acid 5.3 mg/dl (2.5-6.2)
[2024-05-14 11:07] LABS: Erythrocyte Sedimentation Rate 30 mm/hr (0-20)
[2024-05-14 11:14] LABS: Direct LDL Cholesterol 83.27 mg/dL (100-129)
[2024-05-14 11:21] LABS: 25-OH Vitamin D, Total 30.2 ng/mL (30-100)
[2024-05-14 11:34] LABS: Thyroid Stimulating Hormone 2.88 uIU/mL (0.465-4.68)
[2024-05-14 11:56] LABS: Vitamin B12 > 1000 pg/mL (239-931)
[2024-05-14 12:15] LABS: C-Reactive Protein 9.4 mg/L (0-4)
== END 2024-05-14 23:59 | disposition home or self-care (01) ==
LOC: LAB 10:11
PROVIDERS: PCP Nurse Practitioner Family; Visit Provider Podiatrist
DX: Z00.00 Encounter for general adult medical examination without abnormal findings (principal); L03.116 Cellulitis of left lower limb; E03.9 Hypothyroidism, unspecified; E53.8 Deficiency of other specified B group vitamins; E55.9 Vitamin D deficiency, unspecified
CPT/HCPCS: 36415; 80053; 80061; 82306; 82607; 83036; 84443; 84550; 85025; 85651; 86140

== ENCOUNTER 2024-06-10 12:46 | Outpatient (CLI) | payer OTHER, SELFPAY ==
--- NOTE | 2024-06-10 12:46 | CT_ITS ---
FINAL REPORT TECHNIQUE: Thin section CT axial images were obtained of the left foot before and after the administration of IV contrast. This study was performed with techniques to keep radiation doses as low as reasonably achievable, (ALARA). Individualized dose reduction techniques using automated exposure control or adjustment of mA and/or kV according to the patient's size were employed. CLINICAL HISTORY: evaluate sub 1st metatarsal, cellulitis, abscess, COMPARISON: None FINDINGS: There is no evidence of fracture or bony destruction. Enlargement with fluid and enhancement of the flexor hallucis longus tendon is noted, most suspicious for tenosynovitis. No gas is seen in the soft tissues. Surrounding stranding may indicate cellulitis. IMPRESSION: No obvious changes of osteomyelitis. Thickening and abnormal enhancement of the 1st digit flexor tendon compatible with tenosynovitis, possibly infectious in nature. Reviewed, Interpreted and Dictated by Gwyn Olivo MD Transcribed by Caridad Scruggs Authenticated and [facility]
[2024-06-10] MEDS: SODIUM CHLORIDE 0.9% 10ML SYR (RAD ONLY) 10 ML IV (13:16)
[2024-06-10] MEDS: IOPAMIDOL-370 (76%);100ML BOTTLE 75 ML IV (13:16)
== END 2024-06-10 23:59 | disposition home or self-care (01) ==
LOC: RAD 12:46
PROVIDERS: PCP Nurse Practitioner Family; Visit Provider Podiatrist
DX: M79.672 Pain in left foot (principal); L03.116 Cellulitis of left lower limb
CPT/HCPCS: 73702; Q9967

== ENCOUNTER 2024-06-18 09:52 | Outpatient (CLI) | payer OTHER, SELFPAY | END 2024-06-18 23:59 | disposition home or self-care (01) | LOC: LAB.DROPOF 06-19 09:53 | PROVIDERS: PCP Podiatrist; Visit Provider Podiatrist | DX: L03.116 Cellulitis of left lower limb (principal); S90.424D Blister (nonthermal), right lesser toe(s), subsequent encounter | CPT/HCPCS: 87070; 87077; 87205 ==

== ENCOUNTER 2024-07-17 13:58 | Outpatient (CLI) | payer OTHER, SELFPAY ==
[2024-07-17 14:25] LABS: Blood Urea Nitrogen 11 mg/dl (7-17); Estimated Glomerular Filt Rate 76 ml/min (>60); GFR (African American) 92 ML/MIN (>60)
--- NOTE | 2024-07-17 14:30 | MR_ITS ---
FINAL REPORT TECHNIQUE: Multiplanar MR imaging of the left foot was obtained with and without contrast. CLINICAL HISTORY: Left Foot Pain, area of pain is marked with a marker COMPARISON: 06/10/2024 FINDINGS: Marrow signal: There is an ovoid focus of increased T2 signal with enhancement in the distal cuboid measuring up to 20 x 10 mm. This could be related to a vascular lesion or degenerative related signal with inflammatory enhancement. This abuts the cuboid joint. Subtle marrow edema is seen of the lateral talus and lateral malleolus, consider arthritic in nature. Remaining osseous structures are unremarkable. Ligaments: Unremarkable. Tendons: There is extensive enhancement of the flexor hallux longus tendon throughout most of its course along the plantar foot consistent with severe tenosynovitis. There is no tendon tear. No abscess is seen. Tenosynovitis terminates distally, near the site of the marker, located along the plantar foot at the level of the MTP joint. Soft tissues: No abscess or mass. IMPRESSION: 1. No evidence of osteomyelitis or abscess. 2. Severe tenosynovitis of the flexor houses longus tendon. 3. Nonspecific signal changes with enhancement of the calcaneus which may be related to arthritic disease or vascular lesion. Reviewed, Interpreted and Dictated by Gwyn Olivo MD Transcribed by Pia Hooper Authenticated and [facility]
[2024-07-17] MEDS: SODIUM CHLORIDE 0.9% 10ML SYR (RAD ONLY) 10 ML IV (15:04)
[2024-07-17] MEDS: GADOTERIDOL INJ 10ML SYRINGE 3 ML IV (15:04)
[2024-07-17] MEDS: GADOTERIDOL INJ 20ML SYRINGE 20 ML IV (15:04)
== END 2024-07-17 23:59 | disposition home or self-care (01) ==
LOC: RAD 13:59
PROVIDERS: PCP Internal Medicine Adolescent Medicine; Visit Provider Podiatrist
DX: M79.672 Pain in left foot (principal); M19.071 Primary osteoarthritis, right ankle and foot; M19.072 Primary osteoarthritis, left ankle and foot
CPT/HCPCS: 73720; 82565; 84520; A9576

== ENCOUNTER 2024-08-14 09:03 | Outpatient (CLI) | payer OTHER, SELFPAY ==
--- OUTSIDE RECORDS SUMMARY | 2024-08-14 09:05 | XMS_ITS ---
Author Organization [facility] , [facility] Address [address] [place] [phone] Phone Care Team Providers Care Multiple Sclerosis Nurse Name Role Phone Taqueria Marrufo MD Unavailable [phone] Plan of Treatment No Plan of Treatment Recorded Assessments Includes: Assessments for all patient encounters No Assessments Recorded Medical Equipment - Implanted Devices Includes: Current and historical Devices No Medical Equipment Recorded Medications Administered Includes: Administered Medications in patient's chart No Administered Medications Recorded Results Includes: Results from 08/15/2023 through 08/14/2024 No Results Recorded For Specified Dates History of Present Illness History of Present Illness not supported for this document type No History of Present Illness Recorded Social History No Social History Recorded - Smoking Status Unknown Medical History Includes: Medical History in patient's chart No Medical History Recorded Family History Includes: Family History in patient's chart No Family History Recorded Review of Systems Review of Systems not supported for this document type No Review of Systems Recorded Mental Status No Mental Status Recorded Functional Status No Functional Status Recorded Physical Exam Physical Exam not supported for this document type No Physical Exam Recorded Insurance Includes: Active Insurance Policies Plan Name Member ID Group # Subscriber Relationship Effect adelia Dates 1 - [employer] [facility] [id number] Lilian Welch Self Clinical Notes Includes: Signed Clinical Notes starting from 03/31/2022 No Clinical Notes Recorded
--- OUTSIDE RECORDS SUMMARY | 2024-08-14 09:05 | XMS_ITS ---
Care Plan - [facility], [facility] Created on: August 14, 2024 Lilian Welch : 1975 Sex: Female Author Organization [facility] , [facility] Address [address] [place] [phone] Phone Care Team Providers Care Spout Liner Name Role Phone Taqueria Marrufo MD Unavailable [phone]
[2024-08-14 09:30] LABS: Basophils % 0.4 % (0.1-2.0); Eosinophils % 0.1 % (0.1-12.0); Hematocrit 40.4 % (37.0-47.0); Hemoglobin 13.8 g/dL (12.2-16.2); Lymphocytes # 2.1 K/mm3 (0.7-4.5); Lymphocytes % 30.1 % (10-50); Mean Corpuscular HGB Conc 34.2 g/dL (31.8-35.4); Mean Corpuscular Volume 90.8 fl (81-99); Mean Platelet Volume 10.4 fl (7.4-10.4); Monocytes # 0.5 K/mm3 (0.1-1.0); Monocytes % 6.5 % (1.7-9.3); Neutrophils # 4.3 K/mm3 (1.8-7.8); Neutrophils % 62.6 % (37.0-80.0); Nucleated Red Blood Cells # 0 10^3/uL; Nucleated Red Blood Cells % 0 %; Platelet Count 362 K/mm3 (142-424); Red Blood Count 4.45 M/mm3 (4.20-5.40); Red Cell Distribution Width 13.3 % (11.5-17.5); Red Cell Distribution Width-SD 45.1 fL; White Blood Count 6.9 K/mm3 (4.8-10.8)
[2024-08-14 09:51] LABS: Hemoglobin A1C 4.9 % (4.0-6.0)
[2024-08-14 10:02] LABS: Alanine Aminotransferase 17 U/L (12-78); Albumin Level 4.4 g/dl (3.5-5.0); Albumin/Globulin Ratio 1.8 (1.1-1.8); Alkaline Phosphatase 100 U/L (38-126); Aspartate Amino Transferase 20 U/L (14-36); Bilirubin,Total 0.5 mg/dl (0.2-1.3); Blood Urea Nitrogen 13 mg/dl (7-17); Calcium 9.8 mg/dl (8.4-10.2); Carbon Dioxide 29 mmol/L (22.0-30.0); Chloride 106 mmol/L (98-107); Erythrocyte Sedimentation Rate 31 mm/hr (0-20); Estimated Glomerular Filt Rate 89 ml/min (>60); GFR (African American) 107 ML/MIN (>60); Globulin 2.4 g/dL (1.3-3.2); Glucose 94 mg/dl (74-100); Sodium 139 mmol/L (136-145); Total Protein,Serum 6.8 g/dl (6.3-8.2); Uric Acid 5.1 mg/dl (2.5-6.2)
[2024-08-14 10:08] LABS: C-Reactive Protein 7.2 mg/L (0-4)
[2024-08-14 10:33] LABS: Thyroid Stimulating Hormone 1.36 uIU/mL (0.465-4.68)
[2024-08-14 10:53] LABS: Vitamin B12 887 pg/mL (239-931)
[2024-08-14 11:17] LABS: Folate 6.98 ng/mL
[2024-08-15 08:33] LABS: RA Latex Turbid. <10.0 IU/mL (<14.0)
[2024-08-16 11:19] LABS: Antinuclear Antibodies, IFA Negative (.)
== END 2024-08-14 23:59 | disposition home or self-care (01) ==
LOC: LAB 09:04
PROVIDERS: PCP Internal Medicine Adolescent Medicine; Visit Provider Podiatrist
DX: I89.0 Lymphedema, not elsewhere classified (principal); M25.371 Other instability, right ankle; M25.372 Other instability, left ankle; F17.210 Nicotine dependence, cigarettes, uncomplicated; E66.811 Obesity, class 1; Z68.30 Body mass index [BMI] 30.0-30.9, adult
CPT/HCPCS: 36415; 80053; 80323; 82607; 82652; 82746; 83036; 84443; 84550; 85025; 85651; 86038; 86140; 86431

== ENCOUNTER 2024-08-26 09:01 | Outpatient (POV) | payer OTHER, SELFPAY ==
--- NOTE | 2024-08-26 09:09 | A.OFFVIS_ITS ---
HPI Data of Consult Patient: new to practice Consult date: 08/26/24 Requesting Physician: Richelle Marrufo APRN Primary Care Provider: Santhosh Ward MD Consult Narrative Reason for consult: Low back pain, bilateral hip pain History of present illness: Ms. Welch is a 49 year old female who presents today as a new patient. She is a referral from Lena Foley. Today she rates her pain an 8 out of 10. Patient states that she has a longstanding history of chronic low back and hip pain as well as chronic ankle issues. Patient states that she has had these for many years and it has gradually worsened. She does state over the last 5 years however it just seems like it is really exaggerated and gotten to where she cannot do normal activities without severe pain. 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 She describes it as an aching, throbbing sensation with numbness and tingling depending on her activity. Patient does state that it is worse with prolonged sitting or laying down. She states it is affecting her sleep. Patient states that she cannot tolerate going up any stairs and that the pain is interfering with her ability perform activities of daily living such as cooking and cleaning. Patient states she has tried Tylenol and ibuprofen along with heat and ice and topicals with minimal relief. Patient has also been tried on Robaxin with no changes. Patient has had compounded cream for her ankles with Dr. Ruggiero however did not notice significant relief. Patient denies any previous injection history or surgery. Patient is interested in any help we may be able to provide.Patient is not on any scheduled medications. Her Supa has been reviewed and is appropriate. CC: Richelle Marrufo APRN [facility] Disclaimer: The information contained in this section may have been updated after the patient was seen, as this information can be updated by other users. Medical History History of COVID-19 Allergies Hypothyroid Hypertension History of anemia Surgical History History of cholecystectomy Family History Other Family history of cancer Family history of diabetes mellitus type II Social History (Updated 08/26/24 @ 09:27 by Yenifer Rausch RN) Smoking Status: Current every day smoker tobacco type: cigarettes packs per day: 1 alcohol intake: current alcohol intake frequency: other counseling provided: none substance use type: denies use current occupational status: employed Travel in the last 8 weeks?: None Review of Systems Review of Systems Review of systems:: pertinent systems reviewed and negative unless documented below Review of systems (narrative): Review of Systems: General: No recent weight changes, no fever, no sleep disturbances Respiratory: No cough, no shortness of air, no recurring pulmonary infections Cardiovascular/peripheral vascular: No chest pain, no palpitations, no edema, no shortness of breath Gastrointestinal: No new onset incontinence, normal bowel movements reported Genitourinary: No new onset incontinence Musculoskeletal: Low back pain, bilateral hip pain, chronic ankle pain Psychiatric: [Normal mood/affect] Neurological: [Denies weakness in extremities], [denies balance issues] Meds Home Medications and Allergies Home Medications ?Medication ?Instructions ?Recorded ?Confirmed ?Type cholecalciferol (vitamin D3) 50 2,000 unit PO DAILY Supplement 01/01/19 08/13/24 History mcg (2,000 unit) capsule loratadine 10 mg tablet (Claritin) 10 mg PO DAILY Allergy Symptoms 01/01/19 08/13/24 History mecobalamin (vitamin B12) 1,000 1,000 mcg sublingual DAILY 01/01/19 08/13/24 History mcg disintegrating Supplement tablet,sublingual meloxicam 7.5 mg tablet mg PO DAILY 03/11/24 08/13/24 History mupirocin 2 % topical ointment 1 applic topical BID cellulitis 3 04/29/24 08/13/24 Rx weeks #22 grams lisinopril 10 tab PO DAILY 05/13/24 08/13/24 History mg-hydrochlorothiazide 12.5 mg tablet doxycycline hyclate 100 mg capsule 100 mg PO BID 7 days #14 caps 06/03/2407/17 Rx lidocaine 5 % topical ointment 1 applic topical BID PRN pain 30 06/18/24 08/13/24 Rx days #50 grams linezolid 600 mg tablet (Zyvox) 600 mg PO BID infection 10 days 06/18/24 08/13/24 Rx #20 tabs indomethacin 50 mg capsule 50 mg PO TID PRN pain (scale score 03/18/25 04/29/25 Rx 4-6) 30 days #90 caps methylprednisolone 4 mg tablets in See Rx Instructions PO PER PKG DIR 07/19/24 08/13/24 Rx a dose pack (Medrol (Ad)) #21 tabs New Prescriptions to Start Prescriptions: Allergies Allergy/AdvReac Type Severity Reaction Status Date / Time Penicillins Allergy Severe Difficulty Verified 08/13/24 10:18 Breathing Objective Narrative: Physical Exam: General: Alert and oriented x3, no acute distress, pleasant and cooperative Lungs: Respirations even and unlabored, symmetrical chest expansion Eyes: PERRL Musculoskeletal: Flexion and extension of lumbar [spine] somewhat guarded secondary to pain, [antalgic gait noted] point tenderness along bilateral SIs with positive bilateral Marcela's, Angelina's, Gaenslen's, compression and dist raction exam, point tenderness along bilateral greater trochanteric bursa's Neurological: Speech clear, no gross sensory deficit Additional findings Additional findings: FINDINGS: THORACIC SPINE SERIES 3 views of the thoracic spine were obtained. There is no fracture present. There is no malalignment. There is S-shaped curvature of the thoracic spine. Moderate degenerative change is noted. IMPRESSION: Degenerative change without acute process LUMBOSACRAL SPINE SERIES Five views of the lumbosacral spine were obtained. Levoscoliosis is noted. There is 11 mm of anterolisthesis of L4 on L5. There is severe L4-5 disc space narrowing. Bilateral L4 pars defects are noted. IMPRESSION: Severe degenerative changes. Bilateral L4 pars defects. Reviewed, Interpreted and Dictated by Declan Omer III, MD Transcribed by Caridad Scruggs Authenticated and [facility] FINDINGS: Marrow signal: There is an ovoid focus of increased T2 signal with enhancement in the distal cuboid measuring up to 20 x 10 mm. This could be related to a vascular lesion or degenerative related signal with inflammatory enhancement. This abuts the cuboid joint. Subtle marrow edema is seen of the lateral talus and lateral malleolus, consider arthritic in nature. Remaining osseous structures are unremarkable. Ligaments: Unremarkable. Tendons: There is extensive enhancement of the flexor hallux longus tendon throughout most of its course along the plantar foot consistent with severe tenosynovitis. There is no tendon tear. No abscess is seen. Tenosynovitis terminates distally, near the site of the marker, located along the plantar foot at the level of the MTP joint. Soft tissues: No abscess or mass. IMPRESSION: 1. No evidence of osteomyelitis or abscess. 2. Severe tenosynovitis of the flexor houses longus tendon. 3. Nonspecific signal changes with enhancement of the calcaneus which may be related to arthritic disease or vascular lesion. Reviewed, Interpreted and Dictated by Gwyn Olivo MD Transcribed by Pia Hooper Authenticated and [facility] Assessment and Plan *Assessment and plan (1) Low back pain: Status: Acute Category: Medical Code(s): M54.50 - Low back pain, unspecified (2) Bilateral hip pain: Status: Acute Category: Medical Code(s): M25.551 - Pain in right hip; M25.552 - Pain in left hip (3) Bilateral sacroiliitis: Status: Acute Category: Medical Code(s): M46.1 - Sacroiliitis, not elsewhere classified Plan Patient is experiencing worsening pain along the low back and bilateral hips. They did have limited range of motion of the lumbar spine along with extreme point tenderness along right and point tenderness on the left SI joints and a positive bilateral Marcela's, Angelina's, Gaenslen's, compression and distraction exam. I did discuss with the patient that I do believe they would benefit from bilateral SI injections. Risk and benefits were discussed with the patient and they would like to proceed forward with this option. Patient has tried and failed conservative therapy including oral medication, heat and ice, topicals, physical therapy and continued at home stretching exercise for longer than 12 weeks that was physician guided. Patient has had this pain for longer than 6 months with no improvement. If the patient does get significant relief following these injections we will see in the future if they would benefit from a second set with the possibility of SI fusion at a later date. This will be a diagnostic injection with less than 1 mL solution to be injected. Patient will be scheduled for bilateral SI injections under fluoroscopy. I did also discuss with the patient that she did have tenderness along her bilateral bursa's and that we will follow-up following these injections to see if that pain does improve as well. Patient will be ordered a compounded cream. Patient has been instructed to contact the clinic with any concerns before the next appointment. Dr. Driver has reviewed this note and agrees with this plan of care. This note was dictated using voice recognition software and make contain errors or omissions. All injections are used with Lidocaine or Bupivacaine and dexamethasone.
[2024-08-26 09:26] VITALS: BP 137/90; PULSE 63; RESP 18; O2SAT 100; BMI 31.6
== END 2024-08-26 23:59 | disposition home or self-care (01) ==
LOC: SC.PAIN 09:02
PROVIDERS: PCP Internal Medicine Adolescent Medicine; Visit Provider Nurse Practitioner Family
DX: M54.50 Low back pain, unspecified (principal); M25.551 Pain in right hip; M25.552 Pain in left hip; M46.1 Sacroiliitis, not elsewhere classified; Z73.89 Other problems related to life management difficulty; F17.210 Nicotine dependence, cigarettes, uncomplicated
CPT/HCPCS: 99202; G0463

== ENCOUNTER 2025-01-21 10:39 | Outpatient (CLI) | payer OTHER, SELFPAY ==
--- NOTE | 2025-01-21 10:42 | XR_ITS ---
FINAL REPORT CLINICAL HISTORY: PAIN FINDINGS: AP, lateral and oblique views of the right knee were obtained. There is no prior exam for comparison. There is no acute osseous abnormality of the right knee. The joint space is preserved. The soft tissues are normal. There is no joint effusion. IMPRESSION: No acute osseous abnormality of the right knee. Reviewed, Interpreted and Dictated by Sharlene Lui MD Transcribed by Iris Rowan Authenticated and [facility]
--- OUTSIDE RECORDS SUMMARY | 2025-01-21 10:42 | XMS_ITS | Encounter Summary ---
Author Organization [facility] Address [address] [place] [address] Care Team Providers Care Shoe Lay Out Planner Name Role Phone Santhosh Ward MD Primary Care Provider [phone] Reason for Referral * Consultation (Routine) - Authorized Specialty Diagnoses / Procedures Referred By Contac t Referred To Contact Obstetrics and Gynecology Diagnoses Urinary incontinence, unspecified type Santhosh Ward MD [address] [place], [place] [id number] Phone: tel: fax: Medical Office Building Obstetrics and Gynecology [address] [facility], [address] [place] [address] Phone: tel: fax: Referral ID Status Reason Start Date Expiration Date Visits Requested Visits Authorized [id number] Authorized Specialty Services Required 08/30/2024 03/01/2026 1 1 Encounter Details Date Type Department Care Team (Late st Contact Info) Description 08/30/2024 Community [facility] [address] [place] [address] Santhosh Ward MD [address] [place], [place] [id number] Urinary incontinence, unspecified type (Primary Dx) Social History Tobacco Use Types Packs/Day Years Used Date Smoking Tobacco: Former PHQ-2 Answer Date Recorded Patient Health Questionnaire-2 Score 0 09/03/2024 PHQ-9 Answer Date Recorded Patient Health Questionnaire-9 Score 0 09/03/2024 Comments Unknown Sex and Gender Information Value Date Recorded Sex Assigned at Not on file Legal Sex Female 9:03 PM EDT Gender Identity Not on file Sexual Orientation Not on file documented as of this encounter Plan of Treatment Upcoming Encounters Date Type Department Care Team (Late st Contact Info) Description 01/31/2025 7:20 AM EDT Office Visit [facility] Clinic Medicine Specialties [address] [place] [address] Sarika Garland, PARADICHLOROBENZENE TENDER [address] [place] [address] Scheduled Referrals Name Type Priority Associated Diagnoses Order Schedule Ambulatory referral to Urogynecology Outpatient Referral Routine Urinary incontinence, unspecified type Ordered: 08/30/2024 documented as of this encounter Visit Diagnoses Diagnosis Urinary incontinence, unspecified type- Primary documented in this encounter Care Teams Shoe Lay Out Planner Relationship Specialty Start Date End Date Santhosh Ward MD [address] [place] [address] PCP - General 08/28/20 documented as of this encounter
--- OUTSIDE RECORDS SUMMARY | 2025-01-21 10:42 | XMS_ITS | Clinical Summary ---
Author Organization [facility] Address [address] [place] [address] Care Team Providers Care Reed Repairer Name Role Phone Unavailable Primary Care Provider Unavailabl e Social History Tobacco Use Types Packs/Day Years Used Date Smoking Tobacco: Never Assessed Abuse Screen Answer Date Recorded Unsafe at Home or Work/School Not on file Feels Threatened by Someone? Not on file 12/2022 Does Anyone Keep You from Co ntacting Others or Doint Things Outside the Home? Not on file 01/23/2023 Physical Sign of Abuse Present Not on file 1 Housing Stability Answer Date Recorded Current Living Arrangements Not on file 12/2022 Potentially Unsafe Housing Conditions Not on myrtle e 01/23/2023 Family and Community Support Answer Rubén e Recorded Help with Day-to-Day Activities Not on file 01/23/2023 Lonely or Isolated Not on file 01/23/2023 Employment Answer Date Recorded Do you want help finding or keeping work or a shalom b? Not on file 01/23/2023 Disabilities Answer Date Recorded Concentrating, Remembering, or Making Decisions Difficulty Not on file 01/23/2023 Doing Errands Independently Difficulty Not on fi le 01/23/2023 Education Answer Date Recorded Help with school or training? Not on file Preferred Language Not on file 01/23/2023 Comments Unknown Sex and Gender Information Value Date Recorded Sex Assigned at Not on file Legal Sex Female 1:24 PM EDT Gender Identity Not on file Sexual Orientation Not on file Plan of Treatment Health Maintenance Due Date Last Done Comments ANNUAL PHYSICAL 1975 Annual Gynecologic Pelvic and Breast Exam 1975 HEPATITIS C SCREENING 1975 TDAP/TD VACCINES (1 - Tdap) 1993 MAMMOGRAM 2014 COLOGUARD 2019 COLON CANCER SCREENING 5 YEAR SIGMOIDOSCOPY 2019 COLONOSCOPY 2019 [address] CANCER SCREENING 2019 CT COLONOGRAPHY 2019 FECAL OCCULT BLOOD TEST 2019 FIT Testing (1 year) 2019 Pneumococcal Vaccine 50+ (1 of 1 - PCV) 2024 ZOSTER VACCINE (1 of 2) 2024 INFLUENZA VACCINE 11/15/2024
--- OUTSIDE RECORDS SUMMARY | 2025-01-21 10:42 | XMS_ITS | Encounter Summary ---
Author Organization Healthcare Address [address] [place] [address] Care Team Providers Care Asset Protection Specialist Name Role Phone Santhosh Ward MD Primary Care Provider + [phone] Encounter Details Date Type Department Care Team (Late st Contact Info) Description 11/12/2024 Results Follow-Up [facility] Medicine Specialties [address] [place] [address] Sarika Garland M, TERMITE TECHNICIAN [address] [place] [address] Social History Tobacco Use Types Packs/Day Years Used Date Smoking Tobacco: Former Smokeless Tobacco: Never Comments:vape Alcohol Use Standard Drinks/Week Comments Never 0 (1 standard drink = 0.6 oz pur e alcohol) PHQ-2 Answer Date Recorded Patient Health Questionnaire-2 Score 0 11/12/2024 PHQ-9 Answer Date Recorded Patient Health Questionnaire-9 Score 0 09/03/2024 AUDIT-C Answer Date Recorded Q1: How often do you have a drink containing alc ohol? Monthly or less 11/12/2024 Average Number of Drinks Not on file 025 Frequency of Binge Drinking Not on file 10/16 Comments Unknown Sex and Gender Information Value Date Recorded Sex Assigned at Not on file Legal Sex Female 9:03 PM EDT Gender Identity Not on file Sexual Orientation Not on file documented as of this encounter Functional Status * Over the past 2 weeks, how often have you been bothered by any of the following problems? Question Answer Date of Assessment Author Little interest or pleasure in doing things Not at all 11/12/2024 7:11 AM EDT Prisca Seaman Feeling down, depressed, or hopeless Not at all 11/12/2024 7:11 AM EDT Prisca Seaman Patient Health Questionnaire -2 Score 0 11/12/2024 7:11 AM EDT Prisca Seaman documented as of this encounter Plan of Treatment Upcoming Encounters Date Type Department Care Team (Late st Contact Info) Description 01/31/2025 7:20 AM EDT Office Visit [facility] Medicine Specialties [address] [place] [address] Sarika Garland, TERMITE TECHNICIAN [address] [place] [address] documented as of this encounter Visit Diagnoses Not on filedocumented in this encounter Additional Health Concerns Assessment Noted Time PHQ-9 Depression Total Score: 0 09/04/19 25 8:18 AM EDT A fall risk assessment has been complete d for the patient 11/12/2024 7:12 AM EDT A Body Mass Index follow-up plan has been documented for the patient 11/12/2024 8:11 AM EDT documented as of this encounter Care Teams Asset Protection Specialist Relationship Specialty Start Date End Date Santhosh Ward MD [address] [place] [address] PCP - General 08/28/20 documented as of this encounter
--- OUTSIDE RECORDS SUMMARY | 2025-01-21 10:42 | XMS_ITS | Clinical Summary ---
Author Organization [facility] Address [address] [place] [address] Care Team Providers Care Supervisor Public Message Service Name Role Phone Santhosh Ward MD Primary Care Provider + [phone] Allergies Active Allergy Reactions Criticality Noted Date Comments Penicillins Dizziness,Hives,Itch ing,Swelling,Unkno wn - Patient states they do not know rxn details High 11/14/2014 Medications Iron 18 MG/15ML liquid 5 Active Cyanocobalamin 2500 MCG sublingual tablet 5 Active ketoconazole (NIZOral) 2 % shampoo MASSAGE INTO SCALP EVERY OTHER DAY WHEN FLARED. LEAVE ON FOR 3-5 MINUTES THEN RINSE OUT 4 Active lidocaine (Xylocaine) 5 % ointment APPLY OINTMENT EXTERNALLY TO AFFECTED AREA TWICE DAILY NEEDED FOR PAIN 5 Active lisinopril-hydr oCHLOROthiazide 10-12.5 MG tablet Take 1 tablet by mouth daily. 5 Active triamcinolone (Kenalog) 0.1 % ointment APPLY OINTMENT TOPICALLY TO AFFECTED AREA TWICE DAILY FOR UP 2 WEEKS BELOW NECK WHEN FLARED, STOP FOR ONE WEEK, REPEAT NEEDED 4 Active folic acid (Folvite) 1 MG tabletIndicatio ns:Inflammatory arthritis Take 1 tablet by mouth daily. Take this medication daily. 90 tablet 3 5 Active methotrexate 50 MG/2ML injectionIndica tions:Inflammat ory arthritis Inject 0.6 mL under the skin 1 time per week. 0.6mL (15mg), once a week, subcutaneous. 8 mL 5 Active meloxicam (Mobic) 7.5 MG tabletIndicatio ns:Inflammatory arthritis Take 1 tablet by mouth daily. 90 tablet 1 5 Active Syringe/Needle, Disp, (B-D 3CC LUER-BARBARA SYR 25GX1 ) 25G X 1 3 ML misc Use once weekly for Methotrexate injections. 12 each 3 5 Active Active Problems No known active problems Encounters Date Type Department Care Team Description 11/13/2024 Telephone [facility] Medicine Specialties [address] [place] [phone] Natalie Ortiz RN 11/13/[address] [phone] Jeannine Cleveland 11/12/2024 7:20 AM EDT Office Visit [address] [phone] Sarika Garland, DEHORNER Inflammatory arthritis (Primary Dx); Abnormal ANCA test; High risk medication use 11/12/2024 Results Follow-Up [address] [phone] Sarika Garland, DEHORNER 11/12/[address] [facility] Specialties [address] [place] [phone] Sarika Garland, DEHORNER 11/12/2024 Travel 11/11/2024 Travel from Last 3 Months Immunizations Immunization Administration Dates Next Due PPD Skin Test (TB Skin Test) 01/23/2024,01/02/20 24 Family History Medical History Relation Name Comments Diabetes Other 1 Hypertension Other 2 Other cancer Other 3 Relation Name Status Comments Other 1 Other 2 Other 3 Social History Tobacco Use Types Packs/Day Years Used Date Smoking Tobacco: Former Smokeless Tobacco: Never Tobacco Cessation:Counseling Given: Not Answered Comments:vape Alcohol Use Standard Drinks/Week Comments Never [...] on file Sexual Orientation Not on file Last Filed Vital Signs Vital Sign Reading Time Taken Comments Blood Pressure 126/86 11/12/2024 7:08 AM EDT Pulse 59 11/12/2024 7:08 AM EDT Temperature 36.4 C (97.6 F) 11/12/2024 7:08 AM EDT Respiratory Rate 16 11/12/2024 7:08 AM EDT Oxygen Saturation 100% 11/12/2024 7:08 AM EDT Inhaled Oxygen Concentration - - Weight 117 kg (257 lb 11.5 oz) 11/12/2024 7:08 A M EDT Height 190.5 cm (6' 3 ) 11/12/2024 7:08 AM EDT Body Mass Index 32.21 11/12/2024 7:08 AM EDT Plan of Treatment Upcoming Encounters Date Type Department Care Team (Late st Contact Info) Description 01/31/2025 7:20 AM EDT Office Visit [facility] [address] [place] [phone] Sarika Garland M, DEHORNER [address] [place] [phone] Health Maintenance Due Date Last Done Comments [facility]-HIV Screening 1974 [facility]-Infant/Child/Adol SDOH Screenings 1974 [id number] Vaccine (#1) 1979 [facility]- SDOH Screenings 1992 [facility]-Adult SDOH Screenings 1992 [facility]-DTaP,Tdap,and Td Vaccine s (1 - Tdap) 1993 [facility]-Hepatitis B Vaccines (1 of 3 - 19+ 3-dose series) 1993 [facility]-Zoster Vaccines (1 of 2) 1993 [facility]-Pap Smear 1995 [facility]-Cervical Cancer Screening 2004 [facility]-HPV/Cotest 2004 CT Colonography 2019 Colonoscopy 2019 FIT-DNA 2019 FIT 2019 FOBT 2019 Sigmoidoscopy 2019 [facility]-Colorectal Cancer Screening 2019 [facility]-Breast Cancer Screening 2024 [facility]-Pneumococcal Vaccine: 50 + Years (1 of 1 - PCV) 2024 [facility]-Influenza Vaccine (#1) 2024 [facility]-Depression Screening 11/12/2025 025, 09/03/2024 [facility]-Hepatitis C Screening Completed 09/03/2024 [facility]-Obesity Intervention Completed 025, 09/03/2024 HPV Vaccines Aged Out No longer eligi ble based on patient's age to complete this topic [facility]-HIB Vaccines Aged Out No longer e ligible based on patient's age to complete this topic [facility]-Hepatitis A Vaccines Aged Out No longer eligible based on patient's age to complete this topic [facility]-IPV Vaccines Aged Out No longer e ligible based on patient's age to complete this topic [facility]-Rotavirus Vaccines Aged Out No lo nger eligible based on patient's age to complete this topic Procedures Procedure Name Priority Date/Time Associated Diagnosis Comments QUANTIFERON TB GOLD PLUS Routine 11/12/2024 8:04 AM EDT High risk medication use ANCA VASCULITIS PROFILE (SO) Routine 11/12/2024 8:04 AM EDT Abnormal ANCA test CBC WITH AUTO DIFFERENTIAL Routine 11/12/2024 8:04 AM EDT High risk medication use COMPREHENSIVE METABOLIC PANEL, PLASMA Routine 11/12/2024 8:04 AM EDT High risk medication use ACUTE HEPATITIS PANEL Routine 09/03/2024 9:50 AM EDT Foot pain from Last 3 Months or Most Recently Relevant to Health Maintenance Results * ANCA Vasculitis profile (11/12/2024 8:04 AM EDT) Myeloperoxidase (MPO) Ab, IgG 0 0 - 19 AU/mL 11/15/2024 11:47 PM EDT [facility] Serine Proteinase 3 (PR3) Ab, IgG 0 0 - 19 AU/mL 11/15/2024 11:47 PM EDT [facility] ANCA IFA Titer <1:20 <1:20 11/15/2024 11:47 PM EDT [facility] ANCA IFA Pattern None Detected None Detected 11/15/2024 11:47 PM EDT [facility] Blood Venous blood specimen / Unknown Venipuncture / Unknown 11/12/2024 8:04 AM EDT 11/12/2024 8:05 AM EDT Narrative [facility] - 11/15/2024 11:47 PM EDT INTERPRETIVE INFORMATION: Myeloperoxidase Abs, IgG 19 AU/mL or Less ......... Negative 20-25 AU/mL .............. Equivocal 26 AU/mL or Greater ...... Positive Approximately 90% of patients with a P-ANCA pattern by IFA have antibodies specific for MPO. INTERPRETIVE INFORMATION: Serine Proteinase 3, IgG 19 AU/mL or Less ........ Negative 20-25 AU/mL ............. Equivocal 26 AU/mL or Greater ..... Positive Approximately 85% of patients with a C-ANCA pattern by IFA have antibodies specific for PR3. INTERPRETIVE INFORMATION: ANCA IFA Pattern Neutrophil Cytoplasmic Antibodies (C-ANCA = granular cytoplasmic staining, P-ANCA = perinuclear staining) are found in the serum of over 90 percent of patients with certain necrotizing systemic vasculitides, and usually in less than 5 percent of patients with collagen vascular disease or arthritis. Performed By: [facility] [address] [place] [address] Paster Hat Lining: Barrington Matthews MD, PhD CLIA Number: [id number] Sarika M Gill [facility] BLOOD ORDERABLES Final Result Performing Organization Address [facility] Co de Phone Number [facility] [address] [place] [address] * Quantiferon TB Gold Plus (11/12/2024 8:04 AM EDT) [facility] Quantiferon TB Gold Plus Result Negative Negative 11/13/2024 2:27 PM EDT [facility] TB Nill Value 0.138 IU/mL 11/13/2024 2:27 PM EDT [facility] TB Antigen 1 -0.023 IU/mL 11/13/2024 2:27 PM EDT [facility] TB Antigen 2 0.008 IU/mL 11/13/2024 2:27 PM EDT [facility] TB Mitogen 9.862 IU/mL 11/13/2024 2:27 PM EDT [facility] Blood Venous blood specimen / Unknown Venipuncture / Unknown 11/12/2024 8:04 AM EDT 11/12/2024 8:05 AM EDT Narrative [facility] - 11/13/2024 2:27 PM EDT Responses to the Mitogen positive control and occasionally to TB antigen can be above the assay range. For calculation purposes: IFN-gamma values > 10 IU/mL are handled as 10 IU/mL. Sarika Sumaya Garland [facility] BLOOD ORDERABLES Final Result [facility] [address] [place] [address] * CBC and Differential (11/12/2024 8:04 AM EDT) [facility] WBC Count 5.44 3.70 - 10.30 10*3/uL LAB HEMATOLOGY METHOD 11/12/2024 9:04 AM EDT [facility] RBC Count 4.51 3.90 - 5.20 10*6/uL LAB HEMATOLOGY METHOD 11/12/2024 9:04 AM EDT [facility] HGB 13.7 11.2 - 15.7 g/dL LAB HEMATOLOGY METHOD 11/12/2024 9:04 AM EDT [facility] HCT 42.0 34.0 - 45.0 % LAB HEMATOLOGY METHOD 11/12/2024 9:04 AM EDT [facility] Platelet Count 360 155 - 369 10*3/uL LAB HEMATOLOGY METHOD 11/12/2024 9:04 AM EDT [facility] MCV 93 79 - 98 fL LAB HEMATOLOGY METHOD 11/12/2024 9:04 AM EDT [facility] MCH 30.4 26.0 - 32.0 pg LAB HEMATOLOGY METHOD 11/12/2024 9:04 AM EDT [facility] MCHC 32.6 30.7 - 35.5 g/dL LAB HEMATOLOGY METHOD 11/12/2024 9:04 AM EDT [facility] RDW 13.8 11.5 - 14.5 % LAB HEMATOLOGY METHOD 11/12/2024 9:04 AM EDT [facility] MPV 10.3 8.8 - 12.5 fL LAB HEMATOLOGY METHOD 11/12/2024 9:04 AM EDT [facility] nRBC 0.0 <=0.0 per 100 WBCs LAB HEMATOLOGY METHOD 11/12/2024 9:04 AM EDT [facility] Differential Type Automated LAB HEMATOLOGY METHOD 11/12/2024 9:04 AM EDT [facility] Neutrophils % 56 % LAB HEMATOLOGY METHOD 11/12/2024 9:04 AM EDT [facility] Lymphocytes % 32 % LAB HEMATOLOGY METHOD 11/12/2024 9:04 AM EDT [facility] Monocytes % 8 % LAB HEMATOLOGY METHOD 11/12/2024 9:04 AM EDT [facility] Eosinophils % 3 % LAB HEMATOLOGY METHOD 11/12/2024 9:04 AM EDT [facility] Basophils % 1 % LAB HEMATOLOGY METHOD 11/12/2024 9:04 AM EDT [facility] Immature Granulocytes % 0 % LAB HEMATOLOGY METHOD 11/12/2024 9:04 AM EDT [facility] Neutrophils Absolute 3.04 1.60 - 6.10 10*3/uL LAB HEMATOLOGY METHOD 11/12/2024 9:04 AM EDT [facility] Lymphocytes Absolute 1.76 1.20 - 3.90 10*3/uL LAB HEMATOLOGY METHOD 11/12/2024 9:04 AM EDT [facility] Monocytes Absolute 0.42 0.30 - 0.90 10*3/uL LAB HEMATOLOGY METHOD 11/12/2024 9:04 AM EDT [facility] Eosinophils Absolute 0.14 0.00 - 0.50 10*3/uL LAB HEMATOLOGY METHOD 11/12/2024 9:04 AM EDT [facility] Basophils Absolute 0.06 0.00 - 0.10 10*3/uL LAB HEMATOLOGY METHOD 11/12/2024 9:04 AM EDT [facility] Immature Granulocytes Absolute 0.02 0.00 - 0.06 10*3/uL LAB HEMATOLOGY METHOD 11/12/2024 9:04 AM EDT [facility] Blood Venous blood specimen / Unknown Venipuncture / Unknown 11/12/2024 8:04 AM EDT 11/12/2024 8:05 AM EDT Narrative [facility] - 11/12/2024 9:04 AM EDT Therapeutic decision making should be based on absolute values, rather than percentages. us Sarika Garland APRN LAB BLOOD ORDERABLES Final Result [facility] [address] [place] [address] * Comprehensive Metabolic Panel, Plasma (11/12/2024 8:04 AM EDT) Glucose, Plasma 91 74 - 99 mg/dL 11/12/2024 9:32 AM EDT [facility] BUN, Plasma 10 7 - 21 mg/dL 11/12/2024 9:32 AM EDT [facility] Creatinine, Plasma 0.73 0.60 - 1.10 mg/dL 11/12/2024 9:32 AM EDT [facility] BUN/Creatinine Ratio 14 11/12/2024 9:32 AM EDT [facility] Sodium, Plasma 143 136 - 145 mmol/L 11/12/2024 9:32 AM EDT [facility] Potassium, Plasma 4.3 3.6 - 4.9 mmol/L 11/12/2024 9:32 AM EDT [facility] Chloride, Plasma 107 97 - 107 mmol/L 11/12/2024 9:32 AM EDT [facility] CO2, Plasma 27 22 - 29 mmol/L 11/12/2024 9:32 AM EDT [facility] Anion Gap 9 6 - 16 mmol/L 11/12/2024 9:32 AM EDT [facility] Total Calcium, Plasma 9.5 8.9 - 10.2 mg/dL 11/12/2024 9:32 AM EDT [facility] Total Protein 7.0 6.3 - 7.9 g/dL 11/12/2024 9:32 AM EDT [facility] Albumin, Plasma 4.1 3.5 - 5.2 g/dL 11/12/2024 9:32 AM EDT [facility] AST, Plasma 19 10 - 35 U/L 11/12/2024 9:32 AM EDT [facility] ALT, Plasma 14 10 - 35 U/L 11/12/2024 9:32 AM EDT [facility] Alkaline Phosphatase, Plasma 100 35 - 104 U/L 11/12/2024 9:32 AM EDT [facility] Total Bilirubin, Plasma 0.3 0.2 - 1.1 mg/dL 11/12/2024 9:32 AM EDT [facility] eGFRcr 100.3 mL/min/1.7 3m*2 11/12/2024 9:32 AM EDT [facility] Comment:Reported eGFRcr in m L/min/1.73m2 is based the CKD-EPI 2020 equation that does not use a race coefficient. Blood Venous blood specimen / Unknown Venipuncture / Unknown 11/12/2024 8:04 AM EDT 11/12/2024 8:05 AM EDT us Sarika Garland APRN LAB BLOOD ORDERABLES Final Result [facility] [address] [place] [address] * Acute Hepatitis Panel (09/03/2024 9:50 AM EDT) Hepatitis B Surf Antigen Negative Negative 09/03/2024 12:23 PM EDT [facility] Hepatitis C Antibody Negative Negative 09/03/2024 12:23 PM EDT [facility] Hepatitis A Antibody IgM Negative Negative 09/03/2024 12:23 PM EDT [facility] Hepatitis B Core Antibody IgM Negative Negative 09/03/2024 12:23 PM EDT [facility] Blood Venous blood specimen / Unknown Venipuncture / Unknown 09/03/2024 9:50 AM EDT 09/03/2024 9:51 AM EDT us Sarika Garland DEHORNER LAB BLOOD ORDERABLES Final Result [facility] [address] [place] [address] from Last 3 Months or Most Recently Relevant to Health Maintenance Insurance [employer] [facility] MEDICAID Care Teams Supervisor Public Message Service Relationship Specialty Start Date End Date Santhosh Ward MD [address] [place] [id number] PCP - General 08/28/20
== END 2025-01-21 23:59 | disposition home or self-care (01) ==
LOC: RAD 10:40
DX: M25.561 Pain in right knee (principal); L40.9 Psoriasis, unspecified
CPT/HCPCS: 73562

== ENCOUNTER 2025-01-27 09:00 | Outpatient (RCR) | payer OTHER, SELFPAY | END 2025-01-27 23:59 | disposition home or self-care (01) | LOC: PT 09:00 | DX: M25.561 Pain in right knee (principal) | CPT/HCPCS: 97035; 97110; 97162; 97530 ==

== ENCOUNTER 2025-02-24 11:44 | Outpatient (CLI) | payer OTHER, SELFPAY ==
--- OUTSIDE RECORDS SUMMARY | 2025-01-22 07:20 | XMS_ITS | Encounter Summary ---
Author Organization Healthcare Address [address] [place] [address] Care Team Providers Care Admissions Gate Attendant Name Role Phone Santhosh Ward MD Primary Care Provider + [phone] Reason for Referral * Other Medical (Routine) - Pending Review Specialty Diagnoses / Procedures Referred By Jose Manuel olson Referred To Contact Diagnoses Primary osteoarthritis of one knee, right Procedures Injection - Large Joint: R knee Kavon Cleveland PA [address] [place] [address] Phone: tel: fax: Referral ID Status Reason Start Date Expiration Date V isits Requested Visits Authorized [id number] Pending Review 01/22/2025 07/24/2026 1 1 Reason for Visit * Reason Comments Pain * Consultation (Routine) - Closed Specialty Diagnoses / Procedures Referred By Jose Manuel t Referred To Contact Orthopaedic Surgery Diagnoses Pain in right knee Cristin Mccormick PA [address] [place] [address] Phone: tel: fax: [facility] [address] [place] [address] Phone: tel: fax: Referral ID Status Reason Start Date Expiration Date V isits Requested Visits Authorized [id number] Closed Specialty Services Required 01/10/2025 07/12/2026 1 1 Encounter Details Date Type Department Care Team (Latest Contact Info) Description 01/22/2025 8:20 AM EDT Office Visit Medical Office Building [facility] [address] , [address] [place] [address] Kavon Cleveland, BARI [address] [place] [address] Acute pain of right knee (Primary Dx); Primary osteoarthritis of one knee, right Social History Tobacco Use Types Packs/Day Years Used Date Smoking Tobacco: Former Cigarettes 1 24 0 04/17/1992 - 04/17/2016 Passive Smoke Exposure: Never Smokeless Tobacco: Never Tobacco Cessation:Counseling Given: No Comments:vape Alcohol Use Standard Drinks/Week Comments Never [...] Binge Drinking Not on file 10/16 Comments No Sex and Gender Information Value Date Recorded Sex Assigned at Not on file Legal Sex Female 9:03 PM EDT Gender Identity Not on file Sexual Orientation Not on file documented as of this encounter Last Filed Vital Signs Vital Sign Reading Time Taken Comments Blood Pressure 96/71 01/22/2025 8:37 AM EDT Pulse 69 01/22/2025 8:37 AM EDT Temperature - - Respiratory Rate 18 01/22/2025 8:37 AM EDT Oxygen Saturation 99% 01/22/2025 8:37 AM EDT Inhaled Oxygen Concentration - - Weight 117 kg (257 lb) 01/22/2025 8:37 AM EDT Height 188 cm (6' 2 ) 01/22/2025 8:37 AM EDT Body Mass Index 33 01/22/2025 8:37 AM EDT documented in this encounter Miscellaneous Notes * Progress Notes - Kavon Cleveland PA - 01/22/2025 8:20 AM EDTAssociated Order(s): Injection - Large Joint: R knee Post-Procedure Diagnose(s): Primary osteoarthritis of one knee, right Subjective: Lilian Welch is a 49 y.o. female who comes in today for proximally 6 weeks of sudden onset of right knee pain. The patient points to the medial aspect of her right knee as the source of discomfort. She describes it as an aching sharp pain this is not seem to improve. She has taken anti-inflammatory medications in the form of meloxicam. It is worse with walking standing and bending her knee. She has tried ice and heat and started physical therapy. She has a history of left knee arthroscopy she said did not help her much and she has been told she needs a knee replacement on the left. She does have some low back pain and lateral hip pain Past medical history positive for anemia, hypertension, sciatica. The patient does smoke HPI Review of Systems Tobacco Use History[1] Allergies[2] Objective: BMI is Body mass index is 33 kg/m??. Valgus deformities bilateral knees. She has tenderness over her central lumbar spine and SI joints and tenderness with lateral bending to 20?? extension and forward flexion across the low back. She is moderately severely tender over the greater trochanters bilaterally. Bilateral hips have normal range of motion with no pain to the groin thigh or knees. She has proximally 6?? of valgus deformity with the right knee and a mild effusion. She has medial and lateral joint line tenderness. Is mild crepitance in the patellofemoral joint with a positive grind test. Range of motion of her right knee is 5?? from full extension and flexion to 110?? strength is 5/5 with no focal deficits My independent interpretation of radiographic testing shows: tricompartmental arthritis with more joint space narrowing laterally Previous imaging shows: none obtained Assessment and plan: Acute pain of right knee Primary osteoarthritis of one knee, right Orders Placed This Encounter New Patient: XR Knee (Lateral / [place] / Tunnel / AP Standing with Marker) Explained the pathology, today's evaluation options of care. We recommend continued physical therapy and a corticosteroid injection. This provided under sterile conditions without complications. Explained with the at least bicompartmental arthritic changes and decreased joint space a chance of an ar throscopy she giving her improvement. We discussed viscosupplementation and other surgical options and she voiced understanding. She will follow up in [address] Myers to establish care This problem is an acute problem with out progression. Minor and Major procedure risk factors were discussed: (Injection site pain, infection, inflammation and all pertinent risks, benefits, and alternatives to this procedure were discussed. The risks include but are not limited to loss of life, loss of limb, need for further surgery, nonunion, malunion, infection, nerve and/or vessel injury, limb length discrepancy, blood clots, dislocation. The patient understands these risks as we discussed.) and decision was made for procedure. Patient ID: Lilian Welch is a 49 y.o. female. Encounter Diagnoses Name Primary? Acute pain of right knee Yes Primary osteoarthritis of one knee, right Injection - Large Joint: R knee Indications: pain Details: 22 G needle, anterior approach Medications: 30 mg lidocaine 1 %; 15 mg bupivacaine 0.5 %; 80 mg Kenalog-40 40 MG/ML Outcome: tolerated well, no immediate complications Procedure, treatment alternatives, risks and benefits explained, specific risks discussed (Risks include but are not limited to pain, bleeding, infection, failure to relieve symptoms). Consent was given by the patient. Immediately prior to procedure a time out was called to verify the correct patient, procedure, equipment, client support administrator and site/side marked as required. Patient was prepped and draped in the usual sterile fashion. Procedure, treatment alternatives, risks and benefits explained, specific risks discussed (Risks include but are not limited to pain, bleeding, infection, failure to relieve symptoms). Consent was given by the patient. Immediately prior to procedure a time out was called to verify the correct patient, procedure, equipment, client support administrator and site/side marked as required. Patient was prepped and draped in the usual sterile fashion. [1] Social History Tobacco Use Smoking Status Former Current packs/day: 0.00 Average packs/day: 1 pack/day for 24.0 years (24.0 ttl pk-yrs) Types: Cigarettes Start date: 04/17/1992 Quit date: 04/17/2016 Years since quittin.7 Passive exposure: Never Smokeless Tobacco Never Tobacco Comments vape [2] Allergies Allergen Reactions Penicillins Dizziness, Hives, Itching, Swelling and Unknown - Patient states they do not know rxn details documented in this encounter Plan of Treatment Upcoming Encounters Date Type Department Care Team (Late st Contact Info) Description 04/28/2025 9:30 AM EST Office Visit Medical Office Building [facility] [address], [address] [place] [address] Darrell Myers MD [address] [place] [address] 06/03/2025 10:30 AM EST Office Visit [facility] [address] [place] [address] Natalie Martinez APRN [address] [place] [address] documented as of this encounter Procedures Procedure Name Priority Date/Time Associated Diagnosis Comments GA ARTHROCENTESIS ASPIR&/INJ MAJOR JT/BURSA W/O US Routine 01/22/2025 8:20 AM EDT Primary osteoarthritis of one knee, right documented in this encounter Results * New Patient: XR Knee (Lateral / [place] / Tunnel / AP Standing with Marker) (01/22/2025 8:34 AM EDT) Anatomical Region Laterality Modality Lower Extremities, Knee Right Digital Radiography Impressions 01/22/2025 9:10 AM EDT Mild degenerative changes. No acute bony findings. CRITICAL RESULT: No. COMMUNICATION: Per this written report. Drafted by Jaret Rodriguez MD on 01/22/2025 9:10 AM Final report signed by Jaret Rodriguez MD on 01/22/2025 9:10 AM Narrative 01/22/2025 9:10 AM EDT CLINICAL INDICATION: knee pain TECHNIQUE: XR KNEE RIGHT 4+ VIEWS COMPARISON: None. FINDINGS: Osseous mineralization is within normal limits. Mild bilateral medial femorotibial narrowing. Mild patellofemoral narrowing. Slight lateral patellar subluxation. No large knee effusion. Dystrophic calcifications in the pretibial soft tissues. Procedure Note Jaret Rodriguez MD - 01/22/2025 CLINICAL INDICATION: knee pain TECHNIQUE: XR KNEE RIGHT 4+ VIEWS COMPARISON: None. FINDINGS: Osseous mineralization is within normal limits. Mild bilateral medialfemorotibial narrowing. Mild patellofemoral narrowing. Slight lateralpatellar subluxation. No large knee effusion. Dystrophic calcifications inthe pretibial soft tissues. IMPRESSION: Mild degenerative changes. No acute bony findings. CRITICAL RESULT: No. COMMUNICATION: Per this written report. Drafted by Jaret Rodriguez MD on 01/22/2025 9:10 AM Final report signed by Jaret Rodriguez MD on 01/22/2025 9:10 AM us Kavon CANDELARIA IMG XR PROCEDURES Final Resul t * GA ARTHROCENTESIS ASPIR&/INJ MAJOR JT/BURSA W/O US (01/22/2025 8:20 AM EDT) Narrative Kavon Cleveland PA - 01/22/2025 8:20 AM EDT Kavon Cleveland PA 01/22/2025 11:22 AM Injection - Large Joint: R knee Indications: pain Details: 22 G needle, anterior approach Medications: 30 mg lidocaine 1 %; 15 mg bupivacaine 0.5 %; 80 mg Kenalog-40 40 MG/ML Outcome: tolerated well, no immediate complications Procedure, treatment alternatives, risks and benefits explained, specific risks discussed (Risks include but are not limited to pain, bleeding, infection, failure to relieve symptoms). Consent was given by the patient. Immediately prior to procedure a time out was called to verify the correct patient, procedure, equipment, client support administrator and site/side marked as required. Patient was prepped and draped in the usual sterile fashion. Procedure, treatment alternatives, risks and benefits explained, specific risks discussed (Risks include but are not limited to pain, bleeding, infection, failure to relieve symptoms). Consent was given by the patient. Immediately prior to procedure a time out was called to verify the correct patient, procedure, equipment, client support administrator and site/side marked as required. Patient was prepped and draped in the usual sterile fashion. us Kavon CANDELARIA IN CLINIC/BEDSIDE ORDERABLES Final Result documented in this encounter Visit Diagnoses Diagnosis Acute pain of right knee- Primary Primary osteoarthritis of one knee, right Acute pain of right knee documented in this encounter Administered Medications Inactive Administered Medications - up to 3 most recent administrations Medication Order MAR Action Action Date Dose Rate Site bupivacaine (Marcaine) 0.5 % injection 15 mg 15 mg, Injection, Once PRN Procedure, 1 dose, Starting on Mon01/22/25 at 0820, Until Mon01/22/25 at 0820, RoutineIndications:Primary osteoarthritis of one knee, right Given 01/22/2025 8:20 AM EDT 15 mg lidocaine (Xylocaine) 1 % injection 30 mg 30 mg, Intra-articular, Once PRN Procedure, 1 dose, Starting on Mon01/22/25 at 0820, Until Mon01/22/25 at 0820, RoutineIndications:Primary osteoarthritis of one knee, right Given 01/22/2025 8:20 AM EDT 30 mg triamcinolone acetonide (Kenalog-40) injection 80 mg 80 mg, Intra-articular, Once PRN Procedure, 1 dose, Starting on Mon01/22/25 at 0820, Until Mon01/22/25 at 08, RoutineIndications:Primary osteoarthritis of one knee, right Given 01/22/2025 8:20 AM EDT 80 mg documented in this encounter Additional Health Concerns Assessment Noted Time PHQ-9 Depression Total Score: 0 09/04/19 8:18 AM EDT A fall risk assessment has been complete d for the patient 01/22/2025 8:37 AM EDT A Body Mass Index follow-up plan has been documented for the patient 01/22/2025 11:22 AM EDT documented as of this encounter Care Teams Admissions Gate Attendant Relationship Specialty Start Date End Date Santhosh Ward MD [address] [place] [address] PCP - General 08/28/20 documented as of this encounter
--- OUTSIDE RECORDS SUMMARY | 2025-01-22 07:24 | XMS_ITS | Encounter Summary ---
Author Organization Healthcare Address [address] [place] [address] Care Team Providers Care Booster Station Operator Name Role Phone Santhosh Ward MD Primary Care Provider + [phone] Encounter Details Date Type Department Care Team (Latest Contact Info) Description 01/22/2025 8:24 AM EDT - 01/22/2025 11:59 PM EDT Hospital Encounter Medical Office Building Radiology [address] [place] [address] Acute pain of right knee Discharge Disposition: Home or Self Care Social History Tobacco Use Types Packs/Day Years Used Date Smoking Tobacco: Former Cigarettes 1 24 0 04/17/1992 - 04/17/2016 Passive Smoke Exposure: Never Smokeless Tobacco: Never Comments:vape Alcohol Use Standard [...] on file documented as of this encounter Medications at Time of Discharge Cyanocobalamin 2500 MCG sublingual tablet 11/14/2014 folic acid (Folvite) 1 MG tabletIndication s:Inflammatory arthritis Take 1 tablet by mouth daily. Take this medication daily. 90 tablet 3 11/12/2024 Iron 18 MG/15ML liquid 11/14/2014 ketoconazole (NIZOral) 2 % shampoo MASSAGE INTO SCALP EVERY OTHER DAY WHEN FLARED. LEAVE ON FOR 3-5 MINUTES THEN RINSE OUT 01/19/2024 lidocaine (Xylocaine) 5 % ointment APPLY OINTMENT EXTERNALLY TO AFFECTED AREA TWICE DAILY NEEDED FOR PAIN 06/18/2024 lisinopril-hydro CHLOROthiazide 10-12.5 MG tablet Take 1 tablet by mouth daily. 08/29/2024 meloxicam (Mobic) 7.5 MG tabletIndication s:Inflammatory arthritis Take 1 tablet by mouth daily. 90 tablet 1 11/12/2024 triamcinolone (Kenalog) 0.1 % ointment APPLY OINTMENT TOPICALLY TO AFFECTED AREA TWICE DAILY FOR UP 2 WEEKS BELOW NECK WHEN FLARED, STOP FOR ONE WEEK, REPEAT NEEDED 01/19/2024 methotrexate 50 MG/2ML injectionIndicat ions:Inflammator y arthritis Inject 0.6 mL under the skin 1 time per week. 0.6mL (15mg), once a week, subcutaneous. 8 mL 11/12/2024 5 Syringe/Needle, Disp, (B-D 3CC LUER-BARBARA SYR 25GX1 ) 25G X 1 3 ML misc Use once weekly for Methotrexate injections. 12 each 3 11/13/2024 5 documented as of this encounter Plan of Treatment Upcoming Encounters Date Type Department Care Team (Late st Contact Info) Description 04/28/2025 9:30 AM EST Office Visit Medical Office Building [facility] [address] [facility] [address], [address] [place] [address] Darrell Myers MD [address] [facility] [address] [place] [address] 06/03/2025 10:30 AM EST Office Visit [facility] [address] [place] [address] Natalie Martinez, DIRECTOR SECURITY MANAGEMENT [address] [place] [address] documented as of this encounter Procedures Procedure Name Priority Date/Time Associated Diagnosis Comments XR KNEE RIGHT 4+ VIEWS Routine 01/22/2025 8:34 AM EDT Acute pain of right knee documented in this encounter Results * New Patient: XR Knee (Lateral / [place] / Tunnel / AP Standing with Marker) [...] CANDELARIA IMG XR PROCEDURES Final Resul t documented in this encounter Visit Diagnoses Diagnosis Acute pain of right knee documented in this encounter Additional Health Concerns Assessment Noted Time PHQ-9 Depression Total Score: 0 09/04/19 25 8:18 AM EDT A fall risk assessment has been complete d for the patient 01/22/2025 8:37 AM EDT A Body Mass Index follow-up plan has been documented for the patient 01/22/2025 11:22 AM EDT documented as of this encounter Care Teams Booster Station Operator Relationship Specialty Start Date End Date Santhosh Ward MD [address] [place] [address] PCP - General 08/28/20 documented as of this encounter
--- OUTSIDE RECORDS SUMMARY | 2025-01-31 06:20 | XMS_ITS | Encounter Summary ---
Author Organization Healthcare Address [address] [place] [address] Care Team Providers Care Clinical Marketing Manager Name Role Phone Santhosh Ward MD Primary Care Provider + [phone] Reason for Visit * Reason Comments Inflammatory arthritis Encounter Details Date Type Department Care Team (Late st Contact Info) Description 01/31/2025 7:20 AM EDT Office Visit [place] [facility] [address], [address] [place] [address] Sarika Garland M, WALL TAPER [address] [place] [address] Psoriatic arthritis (CMS/HCC) (Primary Dx); High risk medication use Social History Tobacco Use Types Packs/Day Years Used Date Smoking Tobacco: Former Cigarettes 1 24 0 04/17/1992 - 04/17/2016 Passive Smoke Exposure: Never Smokeless Tobacco: Never Tobacco Cessation:Counseling Given: Not Answered Comments:vape Alcohol Use Standard Drinks/Week Comments Never 0 (1 standard drink = 0.6 oz pur e alcohol) PHQ-2 Answer Date Recorded Patient Health Questionnaire-2 Score 0 01/31/2025 PHQ-9 Answer Date Recorded Patient Health Questionnaire-9 Score 0 01/31/2025 AUDIT-C Answer Date Recorded Q1: How often [...] Sign Reading Time Taken Comments Blood Pressure 104/72 01/31/2025 8:03 AM EDT Pulse 63 01/31/2025 8:03 AM EDT Temperature 36.6 C (97.9 F) 01/31/2025 8:03 AM EDT Respiratory Rate 16 01/31/2025 8:03 AM EDT Oxygen Saturation 100% 01/31/2025 8:03 AM EDT Inhaled Oxygen Concentration - - Weight 117 kg (257 lb 15 oz) 01/31/2025 8:03 AM EDT Height 188 cm (6' 2 ) 01/31/2025 8:03 AM EDT Body Mass Index 33.12 01/31/2025 8:03 AM EDT documented in this encounter Functional Status * Over the past 2 weeks, how often have you been bothered by any of the following problems? Question Answer Date of Assessment Author Little interest or pleasure in doing things Not at all 01/31/2025 8:05 AM EDT Ernestine Wyatt Feeling down, depressed, or hopeless Not at all 01/31/2025 8:05 AM EDT Ernestine Wyatt Patient Health Questionnaire -2 Score 0 01/31/2025 8:05 AM EDT Ernestine Wyatt * Question Answer Date of Assessment Author Trouble falling or staying a sleep, or sleeping too much Not at all 01/31/2025 8:05 AM EDT Ernestine Wyatt Feeling tired or having carmen le energy Not at all 01/31/2025 8:05 AM EDT Ernestine Wyatt Poor appetite or overeating Not at all 01/31/2025 8: 05 AM EDT Ernestine Wyatt Feeling bad about yourself - or that you are a failure or have let yourself or your family down Not at all 01/31/2025 8:05 AM EDT Ernestine Wyatt Trouble concentrating on thi ngs, such as reading the newspaper or watching television Not at all 01/31/2025 8:05 AM EDT Ernestine Wyatt Moving or speaking so slowly that other people could have noticed? Or the opposite - being so fidgety or restless that you have been moving around a lot more than usual. Not at all 01/31/2025 8:05 AM EDT Ernestine Ford Thoughts that you would be b ankur off or hurting yourself in some way Not at all 01/31/2025 8:05 AM EDT Ernestine Wyatt Patient Health Questionnaire -9 Score 0 01/31/2025 8:05 AM EDT Ernestine Wyatt * How difficult have these problems made it for you to do your work, take care of things at home, or get along with other people? Answer Date of Assessment Author Not difficult at all 01/31/2025 8:05 AM EDT Ernestine Iyer documented as of this encounter Miscellaneous Notes * Patient Instructions - Sarika Garland APRN - 01/31/2025 7:20 AM EDT -stop Methotrexate, continue folic acid 3 months, start Adalimumab * Progress Notes - Sarika Garland APRN - 01/31/2025 7:20 AM EDT Images from the original note were not included. [facility] Active Ambulatory Problems Diagnosis Date Noted No Active Ambulatory Problems Resolved Ambulatory Problems Diagnosis Date Noted No Resolved Ambulatory Problems Past Medical History: Diagnosis Date Anemia Arthritis Bursitis of hip 08/26/24 CTS (carpal tunnel syndrome) 1999???s Hypertension Low back pain 1986 Sciatica 1999???s HPI Lilian Welch is a 49 y.o. female with PMH significant for HTN, anemia, psoriasis, OA, who presents (01/31/25) for follow up at Rheumatology. Vitals: 01/31/25 0803 BP: 104/72 Pulse: 63 Resp: 16 Temp: 36.6 ??C (97.9 ??F) SpO2: 100% Allergies[1] Initially presenting at Rheumatology with the following hx: Referred with concern for Ankle OA, Initial evaluation at Rheumatology on 09/03/24. Unaccompanied today. States primary care provider has done imaging and found pockets of inflammation in feet and ankles. Has had chronic back pain since growth spurt in 5th grade (grew to 6'3 ). Ankles and feet started hurting 2019. Noted hammertoe prior toe. Back hurts all the time, but is supper stiff for several hours. Feet hurt and are stiff about the erlin all day. Walking makes feet and ankles worse. Issues staying asleep. Gets: hot/red/swollen, mobic does not help. Initial Rheum ROS: Rheumatological ROS positive for on 09/03/24: significant daily dry mouth (has had significant dental decay, teeth breaking). alopecia, psoriasis, dactylitis (? Toe). Fatigue with sun exposure. Raynaud's symptoms (?, gradual color change, unsure when this started). recurrent sinusitis (2 or more permonth). 09/03/24: Rest ROS negative for: significant daily dry eyes, painless recurrent oral ulcers or nasal ulcers, recurring serositis (pericarditis, pleurisy, peritonitis), no recurrent enthesitis), recurring rash,digit ulcerations, renal disease, gross hematuria, severe muscle weakness (struggling to brush hairor needing to use arms to get out of a chair), recurrent fevers with flares, dysphagia, unexplainedhearing loss, psychosis or delirium, seizures, Crohn's, ulcerative colitis, uveitis, MS or other demyelinating disease, blood clots. complications (One or more unexplained deaths after 10 weeks of gestation, deliverybefore 34 weeks due to severe preeclampsia or placental insufficiency, three or more unexplained consecutive miscarriages before 10 weeks of gestation, unexplained severe growth restriction). Family History: FH of autoimmune diseases? None Social History: Exposure to HCV, HBV, HIV or TB. No hx IV drug use. None hx of tobacco use. Current vape use, quit cigarettes 2019. hx of alcohol abuse. None Occupational hx: Works [employer] of prior rheumatology visits: Last visit labs: 11/12/24 foot pain worse through the day. Continues morning stiffness, lasting a few hours, toe continues to be swollen and warm. Back is about the same.Cannot bend great toe on left foot. Appointment on 11/12/2024 Component Date Value Ref Range Status Glucose, Plasma 11/12/2024 91 74 - 99 mg/dL Final BUN, Plasma 11/12/2024 10 7 - 21 mg/dL Final Creatinine, Plasma 11/12/2024 0.73 0.60 - 1.10 mg/dL Final BUN/Creatinine Ratio 11/12/2024 14 Final Sodium, Plasma 11/12/2024 143 136 - 145 mmol/L Final Potassium, Plasma 11/12/2024 4.3 3.6 - 4.9 mmol/L Final Chloride, Plasma 11/12/2024 107 97 - 107 mmol/L Final CO2, Plasma 11/12/2024 27 22 - 29 mmol/L Final Anion Gap 11/12/2024 9 6 - 16 mmol/L Final Total Calcium, Plasma 11/12/2024 9.5 8.9 - 10.2 mg/dL Final Total Protein 11/12/2024 7.0 6.3 - 7.9 g/dL Final Albumin, Plasma 11/12/2024 4.1 3.5 - 5.2 g/dL Final AST, Plasma 11/12/2024 19 10 - 35 U/L Final ALT, Plasma 11/12/2024 14 10 - 35 U/L Final Alkaline Phosphatase, Plasma 11/12/2024 100 35 - 104 U/L Final Total Bilirubin, Plasma 11/12/2024 0.3 0.2 - 1.1 mg/dL Final eGFRcr 11/12/2024 100.3 mL/min/1.73m*2 Final Reported eGFRcr in mL/min/1.73m2 is based the CKD-EPI 2020 equation that does not use a race coefficient. WBC Count 11/12/2024 5.44 3.70 - 10.30 10*3/uL Final RBC Count 11/12/2024 4.51 3.90 - 5.20 10*6/uL Final HGB 11/12/2024 13.7 11.2 - 15.7 g/dL Final HCT 11/12/2024 42.0 34.0 - 45.0 % Final Platelet Count 11/12/2024 360 155 - 369 10*3/uL Final MCV 11/12/2024 93 79 - 98 fL Final MCH 11/12/2024 30.4 26.0 - 32.0 pg Final MCHC 11/12/2024 32.6 30.7 - 35.5 g/dL Final RDW 11/12/2024 13.8 11.5 - 14.5 % Final MPV 11/12/2024 10.3 8.8 - 12.5 fL Final nRBC 11/12/2024 0.0 <=0.0 per 100 WBCs Final Differential Type 11/12/2024 Automated Final Neutrophils % 11/12/2024 56 % Final Lymphocytes % 11/12/2024 32 % Final Monocytes % 11/12/2024 8 % Final Eosinophils % 11/12/2024 3 % Final Basophils % 11/12/2024 1 % Final Immature Granulocytes % 11/12/2024 0 % Final Neutrophils Absolute 11/12/2024 3.04 1.60 - 6.10 10*3/uL Final Lymphocytes Absolute 11/12/2024 1.76 1.20 - 3.90 10*3/uL Final Monocytes Absolute 11/12/2024 0.42 0.30 - 0.90 10*3/uL Final Eosinophils Absolute 11/12/2024 0.14 0.00 - 0.50 10*3/uL Final Basophils Absolute 11/12/2024 0.06 0.00 - 0.10 10*3/uL Final Immature Granulocytes Absolute 11/12/2024 0.02 0.00 - 0.06 10*3/uL Final Myeloperoxidase (MPO) Ab, IgG 11/12/2024 0 0 - 19 AU/mL Final Serine Proteinase 3 (PR3) Ab, IgG 11/12/2024 0 0 - 19 AU/mL Final ANCA IFA Titer 11/12/2024 <1:20 <1:20 Final ANCA IFA Pattern 11/12/2024 None Detected None Detected Final Quantiferon TB Gold Plus Result 11/12/2024 Negative Negative Final TB Nill Value 11/12/2024 0.138 IU/mL Final TB Antigen 1 11/12/2024 -0.023 IU/mL Final TB Antigen 2 11/12/2024 0.008 IU/mL Final TB Mitogen 11/12/2024 9.862 IU/mL Final Follow up 01/31/25: 01/31/25 Was on Methotrexate 3 months, the nausea was terrible, felt overall weird. Hands and feet felt amazing, back was perfect. Forgot to get monitoring labs. Rheum Medication History: Methotrexate 11/08 - 01/2025 severe nausea and weird feeling, joints felt amazing. Adalimumab Review of Systems Constitutional: Negative for chills and fever. Respiratory: Negative for shortness of breath. Cardiovascular: Negative for chest pain. Physical Exam Constitutional: General: She is not in acute distress. Appearance: Normal appearance. She is well-developed. She is not diaphoretic. HENT: Head: Normocephalic and atraumatic. Eyes: General: No scleral icterus. Right eye: No discharge. Left eye: No discharge. Conjunctiva/sclera: Conjunctivae normal. Pulmonary: Effort: Pulmonary effort is normal. No respiratory distress. Musculoskeletal: Comments: Generalized tenderness throughout joints, no synovitis, See homunculus. Skin: General: Skin is warm and dry. Neurological: Mental Status: She is alert and oriented to person, place, and time. Psychiatric: Mood and Affect: Mood normal. Behavior: Behavior normal. Thought Content: Thought content normal. Judgment: Judgment normal. The above medical information was reviewed for this encounter and updated as appropriate: There [facility] Go to the Rheumatology activity andcomplete the [facility] exam. Current Medications[2] Patient global assessment: 3.5/10 Rapid 3 score: 15.5/30 Swollen Joint Count: Swollen: -- Tender Joint Count: Tender: -- CDAI: CDAI Interpretation: 0-2.8 Remission 2.9 -10 Low disease activity 10.1-22.0 Moderate Activity 22.1-76.0 High Activity Assessment and Plan of Care: Plan of care developed with Lilian Welch on (01/31/25): Consult labs/imagin09/04/24 1.Mild degenerative changes of left sacroiliac joint. 2.Severe degenerative disc changes at L4-L5. 3.No findings of sacroiliitis. ANCA 1:160 PR3 and MPO negative. TPO 26, Negative/normal: JULIETTE, joseph, joseph/DISHWASHING M[employer]INE REPA[employer]ER, dsDNA, C3, C4, SSAs, SSB, CCP, RF, sed rate, crp, HLA B27, 1. Psoriatic Arthritis -morning stiffness and night time waking, morning stiffness lasting several hours. Has had back since 5th grade. Discussed height, despite parents not being of similar height, discussed workup with primary care provider to evaluate for vascular or cardic valve issues. -will defer MRI of SI joint at this time. -trial of Methotrexate, joints were great, side effects were terrible, continue folic acid 3 months. -start Adalimumab 2. Dry mouth Dental decay, - ENAII negative 08/2024, could consider biopsy or treatment with pilocarpine. 3. Foot pain/ inflammatory arthritis. -referred from podiatry -start Methotrexate 11/12/24 15mg sub q/ week. Daily folic acid, 2mg. 4. Hair loss -reported, difficult to asses. 5. Primary osteoarthritis, left ankle and foot ?inflammatory arthritis, appearance of dactylitis, see media 09/03/24 6. Photosensitivity Feels fatigued 7. Raynaud's phenomenon without gangrene -recommend patient send pictures, showed images of raynayd's not clearly a diagnosis. JULIETTE negative 09/03/24 will defer further workup. 8 High risk medication High risk medication use risk: no menstrual cycle since 2019 HBV, HCV: negative 09/03/24 TB quant: 11/12/24 negative Chest x-ray: - CBC, Cr., hepatic function panel today - Recommend to hold with infection and contact us with any concern for injection site reaction (if applicable) or medication question. Discussed risk/benefits with patient and agrees to start. All questions answered. No history of solid tumor cancer within past 5 years, heart failure, or demyelinating disease. RTC 3 months Patient is agreeable to the above treatment plan and had no further questions. Thanks for the opportunity to participate in the care of this patient! If there are any questions or concerns, please reach out to me personally. Thanks! Sarika Garland, KATARINA Time Spent: I personally spent a total of 30 minutes on this encounter. This time includes face to face with patient, counseling and discussion and/or coordination of care. The patient was counseled about diagnostic results, instruction for management, risk factors reduction, prognosis, compliance with visits and treatment, risks and benefits of treatments options. Prior notes (by external physicians) and results were reviewed by me with independent interpretation of labs and imaging. My note will be sent to PCP and other consulting physicians. [1] Allergies Allergen Reactions Penicillins Dizziness, Hives, Itching, Swelling and Unknown - Patient states they do not know rxn details [2] Current Outpatient Medications Medication Sig Dispense Refill Cyanocobalamin 2500 MCG sublingual tablet folic acid (Folvite) 1 MG tablet Take 1 tablet by mouth daily. Take this medication daily. 90 tablet 3 Iron 18 MG/15ML liquid ketoconazole (NIZOral) 2 % shampoo MASSAGE INTO SCALP EVERY OTHER DAY WHEN FLARED. LEAVE ON FOR 3-5MINUTES THEN RINSE OUT lidocaine (Xylocaine) 5 % ointment APPLY OINTMENT EXTERNALLY TO AFFECTED AREA TWICE DAILY NEEDEDFOR PAIN lisinopril-hydroCHLOROthiazide 10-12.5 MG tablet Take 1 tablet by mouth daily. meloxicam (Mobic) 7.5 MG tablet Take 1 tablet by mouth daily. 90 tablet 1 triamcinolone (Kenalog) 0.1 % ointment APPLY OINTMENT TOPICALLY TO AFFECTED AREA TWICE DAILY FOR UP2 WEEKS BELOW NECK WHEN FLARED, STOP FOR ONE WEEK, REPEAT NEEDED No current facility-administered medications for this visit. * Progress Notes - Dariusz Albright - 01/31/2025 7:20 AM EDT Specialty Pharmacy - Inflammatory Conditions Subjective Lilian Welch is a 49 y.o. female, with Psoriatic Arthritis (PsA) ICD-10 code L40.50 presenting to clinic for follow up regarding Adalimumab Insurance Type: Medicaid Preferred Pharmacies: [facility] [address] [place] [id number] Objective Patient has tried and failed the following therapies: Methotrexate. Concomitant therapy: N/a Allergies[1] Problem List[2] Current Outpatient Medications Medication Instructions Cyanocobalamin 2500 MCG sublingual tablet folic acid (FOLVITE) 1 mg, Oral, Daily, Take this medication daily. Iron 18 MG/15ML liquid ketoconazole (NIZOral) 2 % shampoo MASSAGE INTO SCALP EVERY OTHER DAY WHEN FLARED. LEAVE ON FOR 3-5MINUTES THEN RINSE OUT lidocaine (Xylocaine) 5 % ointment APPLY OINTMENT EXTERNALLY TO AFFECTED AREA TWICE DAILY NEEDEDFOR PAIN lisinopril-hydroCHLOROthiazide 10-12.5 MG tablet 1 tablet, Daily meloxicam (MOBIC) 7.5 mg, Oral, Daily triamcinolone (Kenalog) 0.1 % ointment APPLY OINTMENT TOPICALLY TO AFFECTED AREA TWICE DAILY FOR UP2 WEEKS BELOW NECK WHEN FLARED, STOP FOR ONE WEEK, REPEAT NEEDED Labs: CBC (w/Diff): Lab Results Component Value Date/Time WBC 5.44 11/12/2024 0804 RBC 4.51 11/12/2024 0804 HGB 13.7 11/12/2024 0804 HCT 42.0 11/12/2024 0804 PLT 360 11/12/2024 0804 MCV 93 11/12/2024 0804 MCHC 32.6 11/12/2024 0804 RDW 13.8 11/12/2024 0804 MPV 10.3 11/12/2024 0804 NRBC 0.0 11/12/2024 0804 NEUTOPHILPCT 56 11/12/2024 0804 LYMPHOPCT 32 11/12/2024 0804 MONOPCT 8 11/12/2024 0804 EOSPCT 3 11/12/2024 0804 BASOPCT 1 11/12/2024 0804 CIG 0 11/12/2024 0804 NEUTROABS 3.04 11/12/2024 0804 LYMPHSABS 1.76 11/12/2024 0804 MONOSABS 0.42 11/12/2024 0804 EOSABS 0.14 11/12/2024 0804 BASOSABS 0.06 11/12/2024 0804 CIGA 0.02 11/12/2024 0804 CMP: Lab Results Component Value Date/Time GLUCOSE 91 11/12/2024 0804 BUN 10 11/12/2024 0804 CREATININE 0.73 11/12/2024 0804 BCR 14 11/12/2024 0804 NA 143 11/12/2024 0804 K 4.3 11/12/2024 0804 CL 107 11/12/2024 0804 CO2 27 11/12/2024 0804 ANIONGAP 9 11/12/2024 0804 CALCIUM 9.5 11/12/2024 0804 TP 7.0 11/12/2024 0804 ALBUMIN 4.1 11/12/2024 0804 AST 19 11/12/2024 0804 ALT 14 11/12/2024 0804 ALKPHOS 100 11/12/2024 0804 BILITOT 0.3 11/12/2024 0804 EGFR 100.3 11/12/2024 0804 C-Reactive Protein: Lab Results Component Value Date/Time CRP 5.9 09/03/2024 0950 Lipid Panel: No results found for: CHOL , HDL , TRIG , CRATIO , LDL , [id number] Quantiferon TB: Lab Results Component Value Date/Time QUANTIFERON Negative 11/12/2024 0804 Hepatitis B: Lab Results Component Value Date/Time HEPBCAB Negative 09/03/2024 0950 HEPBSAG Negative 09/03/2024 0950 Histo: No results found for: HISTOPSERUM Immunizations: Immunization History Administered Date(s) Administered PPD Skin Test (TB Skin Test) 01/02/2024, 01/23/2024 Additional immunization(s): N/a Family Planning/Reproductive Health: Is patient of child bearing potential? No Assessment/Plan Lilian Welch specialty medication(s) were reviewed by the clinical pharmacist today. Clinical justification for prescribed therapy (if needed): N/a Lab Assessment TB assessment: assessment completed within the last year TB test status: negative quaniferon TB-Gold test Hepatitis B: no evidence of past or current infection Ongoing lab monitoring required: CBC, CMP Vaccine Recommendations: Prior to starting this medication, the following immunizations should be administered per most up-to-date ACIP/CDC recommendations: Influenza: Recommended for all patients annually during influenza season Pneumococcal: Recommended for 19-65 with lung disease: PCV20, unless previously vaccinated with PCV13 AND PPSV23 in any order, Recommended for adults 65 years and older Drug Utilization Review: Drug-disease precautions: No clinically significant issues identified Drug-drug interactions: No clinically significant issues identified Drug-patient precautions: No clinically significant issues identified Medication Administration: Route of administration: Self-injectable; Auto-injector Medication Education: The patient was counseled regarding instructions for management, risk factor reductions, patient and family education, impressions, risks and benefits of treatment options, importance of compliance with biologic medications. Discussed with the patient risks, benefits and alternatives of biologic medications. Possible side effects such as, but not limited to, are: skin reactions, tuberculosis (TB), histoplasmosis and other fungal infections, severe viral infections, deep tissue bacterial infections, small increased risk of skin cancer and possibly other forms of cancer and congestive heart failure. The patient was also informed to stop taking the biologic treatment if a fever occurs or antibiotics are prescribed for an infection and to contact our office to inform us and receive further instructions. Each biologic medication has other specific risks and the patient was provided verbal and written information regarding these risks. The patient has communicated understanding regarding bio logic medications and is agreeable to treatment. Prescriptions Issued or Pending: Yes. Per discussion with provider, Humira has been ordered at the request of the provider for 28 day supply with 3 refills to [facility] pharmacy. Summary: Education for Adalimumab verbalized to patient and provided via clinic folder/this note. Expected start date WILFRID. Patient will call clinical pharmacist and report any side effects and will seek medical attention for signs and symptoms of infection. Patient was provided with a folder containing medi cation information, community support resources, disease and medication related support resources, and pertinent phone numbers. The patient was counseled regarding instructions for management, risk factor reductions, patient and family education, impressions, risks and benefits of treatment options, and importance of compliance with biologic medications. Discussed with the patient risks, benefitsand alternatives of biologic medications. The patient was also informed to stop taking the biologictreatment if a fever occurs or medications are prescribed for an infection and to contact our office to inform us and receive further instructions. Each specialty medication has other specific risks and the patient was provided verbal and written information regarding these risks. Patient was also counseled on time to effect varying between 3-6 months, and to notify clinic of worsening symptoms or flares. The patient has communicated understanding regarding biologic medications and is agreeableto treatment. Patient's therapy is appropriate to initiate/continue. Prescription for this medication will be routed to Specialty Pharmacy. Will continue to follow and provide support for pharmacy and medication related needs as clinicallyindicated. Dariusz Albright 01/31/2025 8:50 AM [1] Allergies Allergen Reactions Penicillins Dizziness, Hives, Itching, Swelling and Unknown - Patient states they do not know rxn details [2] There is no problem list on file for this patient. Cosigned by Christiano Meng, Faith at 01/31/2025 11:36 AM EDT documented in this encounter Plan of Treatment Upcoming Encounters Date Type Department Care Team (Late st Contact Info) Description 04/28/2025 9:30 AM EST Office Visit Medical Office Building [facility] [address], [address] [place] [address] Darrell Myers MD [address] [place] [address] 06/03/2025 10:30 AM EST Office Visit [facility] Medicine Specialties [address] [place] [address] Natalie Martinez, WALL TAPER [address] [place] [address] documented as of this encounter Results * (ABNORMAL) CBC and Differential (01/31/2025 8:57 AM EDT) WBC Count 9.14 3.70 - 10.30 10*3/uL LAB HEMATOLOGY METHOD 01/31/2025 10:08 AM EDT [facility] RBC Count 4.40 3.90 - 5.20 10*6/uL LAB HEMATOLOGY METHOD 01/31/2025 10:08 AM EDT [facility] HGB 13.5 11.2 - 15.7 g/dL LAB HEMATOLOGY METHOD 01/31/2025 10:08 AM EDT [facility] HCT 41.2 34.0 - 45.0 % LAB HEMATOLOGY METHOD 01/31/2025 10:08 AM EDT [facility] Platelet Count 383(H) 155 - 369 10*3/uL LAB HEMATOLOGY METHOD 01/31/2025 10:08 AM EDT [facility] MCV 94 79 - 98 fL LAB HEMATOLOGY METHOD 01/31/2025 10:08 AM EDT [facility] MCH 30.7 26.0 - 32.0 pg LAB HEMATOLOGY METHOD 01/31/2025 10:08 AM EDT [facility] MCHC 32.8 30.7 - 35.5 g/dL LAB HEMATOLOGY METHOD 01/31/2025 10:08 AM EDT [facility] RDW 14.6(H) 11.5 - 14.5 % LAB HEMATOLOGY METHOD 01/31/2025 10:08 AM EDT [facility] MPV 10.4 8.8 - 12.5 fL LAB HEMATOLOGY METHOD 01/31/2025 10:08 AM EDT [facility] nRBC 0.0 <=0.0 per 100 WBCs LAB HEMATOLOGY METHOD 01/31/2025 10:08 AM EDT [facility] Differential Type Automated LAB HEMATOLOGY METHOD 01/31/2025 10:08 AM EDT [facility] Neutrophils % 69 % LAB HEMATOLOGY METHOD 01/31/2025 10:08 AM EDT [facility] Lymphocytes % 19 % LAB HEMATOLOGY METHOD 01/31/2025 10:08 AM EDT [facility] Monocytes % 9 % LAB HEMATOLOGY METHOD 01/31/2025 10:08 AM EDT [facility] Eosinophils % 1 % LAB HEMATOLOGY METHOD 01/31/2025 10:08 AM EDT [facility] Basophils % 1 % LAB HEMATOLOGY METHOD 01/31/2025 10:08 AM EDT [facility] Immature Granulocytes % 1 % LAB HEMATOLOGY METHOD 01/31/2025 10:08 AM EDT [facility] Neutrophils Absolute 6.33(H) 1.60 - 6.10 10*3/uL LAB HEMATOLOGY METHOD 01/31/2025 10:08 AM EDT [facility] Lymphocytes Absolute 1.71 1.20 - 3.90 10*3/uL LAB HEMATOLOGY METHOD 01/31/2025 10:08 AM EDT [facility] Monocytes Absolute 0.83 0.30 - 0.90 10*3/uL LAB HEMATOLOGY METHOD 01/31/2025 10:08 AM EDT [facility] Eosinophils Absolute 0.12 0.00 - 0.50 10*3/uL LAB HEMATOLOGY METHOD 01/31/2025 10:08 AM EDT [facility] Basophils Absolute 0.08 0.00 - 0.10 10*3/uL LAB HEMATOLOGY METHOD 01/31/2025 10:08 AM EDT [facility] Immature Granulocytes Absolute 0.07(H) 0.00 - 0.06 10*3/uL LAB HEMATOLOGY METHOD 01/31/2025 10:08 AM EDT [facility] Blood Venous blood specimen / Unknown Venipuncture / Unknown 01/31/2025 8:57 AM EDT 01/31/2025 8:57 AM EDT Narrative [facility] - 01/31/2025 10:08 AM EDT Therapeutic decision making should be based on absolute values, rather than percentages. us Sarika Garland APRN LAB BLOOD ORDERABLES Final Result [facility] [address] [place] [address] * (ABNORMAL) Comprehensive Metabolic Panel, Plasma (01/31/2025 8:57 AM EDT) Glucose, Plasma 88 74 - 99 mg/dL 01/31/2025 10:13 AM EDT [facility] BUN, Plasma 6(L) 7 - 21 mg/dL 01/31/2025 10:13 AM EDT [facility] Creatinine, Plasma 0.68 0.60 - 1.10 mg/dL 01/31/2025 10:13 AM EDT [facility] BUN/Creatinine Ratio 9 01/31/2025 10:13 AM EDT [facility] Sodium, Plasma 141 136 - 145 mmol/L 01/31/2025 10:13 AM EDT [facility] Potassium, Plasma 4.0 3.6 - 4.9 mmol/L 01/31/2025 10:13 AM EDT [facility] Chloride, Plasma 104 97 - 107 mmol/L 01/31/2025 10:13 AM EDT [facility] CO2, Plasma 28 22 - 29 mmol/L 01/31/2025 10:13 AM EDT [facility] Anion Gap 9 6 - 16 mmol/L 01/31/2025 10:13 AM EDT [facility] Total Calcium, Plasma 9.2 8.9 - 10.2 mg/dL 01/31/2025 10:13 AM EDT [facility] Total Protein 6.7 6.3 - 7.9 g/dL 01/31/2025 10:13 AM EDT [facility] Albumin, Plasma 3.7 3.5 - 5.2 g/dL 01/31/2025 10:13 AM EDT [facility] AST, Plasma 17 10 - 35 U/L 01/31/2025 10:13 AM EDT [facility] ALT, Plasma 18 10 - 35 U/L 01/31/2025 10:13 AM EDT [facility] Alkaline Phosphatase, Plasma 106(H) 35 - 104 U/L 01/31/2025 10:13 AM EDT [facility] Total Bilirubin, Plasma <0.2(L) 0.2 - 1.1 mg/dL 01/31/2025 10:13 AM EDT [facility] eGFRcr 106.3 mL/min/1.7 3m*2 01/31/2025 10:13 AM EDT [facility] Comment:Reported eGFRcr in m L/min/1.73m2 is based the CKD-EPI 2020 equation that does not use a race coefficient. Blood Venous blood specimen / Unknown Venipuncture / Unknown 01/31/2025 8:57 AM EDT 01/31/2025 8:57 AM EDT us Sarika Garland WALL TAPER LAB BLOOD ORDERABLES Final Result [facility] [address] [place] [address] documented in this encounter Visit Diagnoses Diagnosis Psoriatic arthritis (CMS/HCC)- Primary Psoriatic arthropathy High risk medication use documented in this encounter Additional Health Concerns Assessment Noted Time PHQ-9 Depression Total Score: 0 02/01/20 8:05 AM EDT A fall risk assessment has been complete d for the patient 01/31/2025 8:05 AM EDT A Body Mass Index follow-up plan has been documented for the patient 01/31/2025 8:38 AM EDT documented as of this encounter Care Teams Clinical Marketing Manager Relationship Specialty Start Date End Date Santhosh Ward MD [address] [place] [address] PCP - General 08/28/20 documented as of this encounter
--- OUTSIDE RECORDS SUMMARY | 2025-02-24 11:46 | XMS_ITS | Encounter Summary ---
Author Organization Healthcare Address [address] [place] [address] Care Team Providers Care Instructional Interventionist Name Role Phone Santhosh Ward MD Primary Care Provider + [phone] Encounter Details Date Type Department Care Team (Late st Contact Info) Description 11/12/2024 Results Follow-Up [facility] Medicine Specialties [address], [address] [place] [address] Sarika Garland M, INDUSTRIAL MILLWRIGHT [address] [place] [address] Social History Tobacco Use Types [...] Building Surgery Spine & Joint [address] [facility], [address] [place] [address] Darrell Myers MD [address] [place] [address] 06/03/2025 10:30 AM EST Office Visit [place] [facility] [address], [address] [place] [address] Natalie Martinez, INDUSTRIAL MILLWRIGHT [address] [place] [address] documented as of this encounter [...] documented as of this encounter Care Teams Instructional Interventionist Relationship Specialty Start Date End Date Santhosh Ward MD [address] [place] [address] PCP - General 08/28/20 documented as of this encounter
--- OUTSIDE RECORDS SUMMARY | 2025-02-24 11:46 | XMS_ITS | Encounter Summary ---
Author Organization [facility] Address [address] [place] [address] Care Team Providers Care Dredge Engineer Name Role Phone Santhosh Ward MD Primary Care Provider + [phone] Reason for Referral * Consultation (Routine) - Authorized Specialty Diagnoses / Procedures Referred By Contac t Referred To Contact Obstetrics and Gynecology Diagnoses Urinary incontinence, unspecified type Santhosh Ward MD [address] [place], [place] [id number] Phone: tel: fax: Medical Office Building Obstetrics and Gynecology [address] [facility], [address] [place] [address] Phone: tel: fax: Referral ID Status Reason Start Date Expiration Date Visits Requested Visits Authorized [id number] Authorized Specialty Services Required 08/30/2024 03/01/2026 1 1 Encounter Details Date Type Department Care Team (Late st Contact Info) Description 08/30/2024 Community [facility] [address] [place] [address] Santhosh Ward MD [address] [place], [place] [id number] Urinary incontinence, unspecified type (Primary Dx) Social [...] Joint [address], [address] [place] [address] Darrell Myers MD [address] [place] [address] 06/03/2025 10:30 AM EST Office Visit [place] [facility] Medicine [facility] [address] [place] [address] Natalie Martinez, FOOD SERVICE TRAY ATTENDANT [address] [place] [address] Scheduled Referrals Name Type Priority Associated Diagnoses Order Schedule Ambulatory referral to Urogynecology Outpatient Referral Routine Urinary incontinence, unspecified type Ordered: 08/30/2024 documented as of this encounter Visit Diagnoses Diagnosis Urinary incontinence, unspecified type- Primary documented in this encounter Care Teams Dredge Engineer Relationship Specialty Start Date End Date Santhosh Ward MD [address] [place] [address] PCP - General 08/28/20 documented as of this encounter
--- OUTSIDE RECORDS SUMMARY | 2025-02-24 11:46 | XMS_ITS | Clinical Summary ---
Author Organization [facility] Address [address] [place] [address] Care Team Providers Care Rolfer Name Role Phone Santhosh Ward MD Primary Care Provider + [phone] Allergies Active Allergy Reactions Criticality Noted Date Comments Penicillins Dizziness,Hives,Itch ing,Swelling,Unkno wn - Patient states they do not know rxn details High 11/14/2014 Medications Iron 18 MG/15ML liquid 11/15/19 15 Active Cyanocobalamin 2500 MCG sublingual tablet 11/15/19 15 Active ketoconazole (NIZOral) 2 % shampoo MASSAGE INTO SCALP EVERY OTHER DAY WHEN FLARED. LEAVE ON FOR 3-5 MINUTES THEN RINSE OUT 01/19/20 24 Active lidocaine (Xylocaine) 5 % ointment APPLY OINTMENT EXTERNALLY TO AFFECTED AREA TWICE DAILY NEEDED FOR PAIN 06/19/19 25 Active lisinopril-hyd roCHLOROthiazi de 10-12.5 MG tablet Take 1 tablet by mouth daily. 08/30/19 25 Active triamcinolone (Kenalog) 0.1 % ointment APPLY OINTMENT TOPICALLY TO AFFECTED AREA TWICE DAILY FOR UP 2 WEEKS BELOW NECK WHEN FLARED, STOP FOR ONE WEEK, REPEAT NEEDED 01/19/20 24 Active folic acid (Folvite) 1 MG tabletIndicati ons:Inflammato ry arthritis Take 1 tablet by mouth daily. Take this medication daily. 90 tablet 3 11/13/19 25 Active meloxicam (Mobic) 7.5 MG tabletIndicati ons:Inflammato ry arthritis Take 1 tablet by mouth daily. 90 tablet 1 11/13/19 25 Active Adalimumab (Humira, 2 Pen,) 40 MG/0.8ML Auto-injector KitIndications :Psoriatic arthritis (CMS/HCC) Inject 1 each under the skin every 14 days. 2 each 3 02/01/20 25 Active methotrexate 50 MG/2ML injectionIndic ations:Inflamm atory arthritis Inject 0.6 mL under the skin 1 time per week. 0.6mL (15mg), once a week, subcutaneous. 8 mL 11/13/19 25 025 Discontinued Syringe/Needle , Disp, (B-D 3CC LUER-BARBARA SYR 25GX1 ) 25G X 1 3 ML misc Use once weekly for Methotrexate injections. 12 each 3 11/14/19 25 025 Discontinued Active Problems No known active problems Encounters Date Type Department Care Team Description 01/31/2025 7:20 AM EDT Office Visit [facility] Medicine Specialties [address], [address] [place] [address] Sarika Garland, KATARINA Psoriatic arthritis (CMS/HCC) (Primary Dx); High risk medication use 01/31/2025 Results Follow-Up [facility] Medicine Specialties [address], [address] [place] [phone] Sarika Garland APRN 01/31/2025 Telephone [facility] Medicine Specialties [address], [address] [place] [address] Dariusz Albright New Start 01/31/2025 Travel 01/22/2025 8:24 AM EDT - 01/22/2025 11:59 PM EDT Hospital Encounter Medical Office Building Radiology [address] [place] [address] Acute pain of right knee Discharge Disposition: Home or Self Care 01/22/2025 8:20 AM EDT Office Visit Medical Office Building Surgery Spine & Joint [address] [facility], [address] [place] [address] Kavon Cleveland, PA Acute pain of right knee (Primary Dx); Primary osteoarthritis of one knee, right 01/22/2025 Travel from Last 3 Months Immunizations Immunization Administration Dates Next Due PPD Skin Test (TB Skin Test) 01/23/2024,01/02/20 24 Family History Medical History Relation Name Comments Alcohol abuse Other 1 Konstantin Diabetes Other 1 Konstantin Hearing loss Other 1 Konstantin Depression Other 2 Mom Hearing loss Other 2 Mom Hypertension Other 2 Mom Arthritis Other 3 Sherman Cancer Other 3 Sherman Other cancer Other 3 Sherman Relation Name Status Comments Other 1 Konstantin Other 2 Mom Other 3 Sherman Social History Tobacco Use Types Packs/Day Years [...] Mass Index 33.12 01/31/2025 8:03 AM EDT Plan of Treatment Upcoming Encounters Date Type Department Care Team (Late st Contact Info) Description 04/28/2025 9:30 AM EST Office Visit Medical Office Building Surgery Spine & Joint [address], [address] [place] [address] Darrell Myers MD [address] [place] [address] 06/03/2025 10:30 AM EST Office Visit [place] [facility] Medicine Specialties [address], [address] [place] [address] Natalie Martinez, KILN SETTER [address] [place] [address] Health Maintenance Due Date Last Done Comments [facility]-HIV Screening 1974 [facility]-Infant/Child/Adol SDOH Screenings 1974 [id number] Vaccine (#1) 1979 [facility]- SDOH Screenings 1992 [facility]-Adult SDOH Screenings 1992 [facility]-DTaP,Tdap,and Td Vaccines (1 - Tdap) 1993 [facility]-Hepatitis B Vaccines (1 of 3 - 19+ 3-dose series) 1993 [facility]-Pap Smear 1995 [facility]-Cervical Cancer Screening 2004 [facility]-HPV/Cotest 2004 CT Colonography 2019 Colonoscopy 2019 FIT-DNA 2019 FIT 2019 FOBT 2019 Sigmoidoscopy 2019 [facility]-Colorectal Cancer Screening 2019 Lung Cancer Screening Shared Decision Making 2024 [facility]-Breast Cancer Screening 2024 [facility]-Lung Cancer Screening 2024 [facility]-Pneumococcal Vaccine: 50+ Years (1 of 1 - PCV) 2024 [facility]-Zoster Vaccines (1 of 2) 2024 [facility]-Influenza Vaccine (#1) 2024 [facility]-Depression Screening 01/31/2026 01/31/2025, 01/15 [facility]-Hepatitis C Screening Completed 09/03/2024 [facility]-Obesity Intervention Completed 025, 01/22/2025, 11/12/2024, Additional history exists HPV Vaccines Aged Out No longer eligi [...] Procedure Name Priority Date/Time Associated Diagnosis Comments COMPREHENSIVE METABOLIC PANEL, PLASMA Routine 01/31/2025 8:57 AM EDT High risk medication use CBC WITH AUTO DIFFERENTIAL Routine 01/31/2025 8:57 AM EDT High risk medication use XR KNEE RIGHT 4+ VIEWS Routine 8:34 AM EDT Acute pain of right knee TN ARTHROCENTESIS ASPIR&/INJ MAJOR JT/BURSA W/O US Routine 01/22/2025 8:20 AM EDT Primary osteoarthritis of one knee, right ACUTE HEPATITIS PANEL Routine 09/03/2024 9:50 AM EDT Foot pain from Last 3 Months or Most Recently Relevant to Health Maintenance Results * (ABNORMAL) CBC and Differential (01/31/2025 8:57 AM EDT) WBC Count 9.14 3.70 - 10.30 10*3/uL LAB HEMATOLOGY METHOD 01/31/2025 10:08 AM EDT [facility] RBC Count 4.40 3.90 - 5.20 10*6/uL LAB HEMATOLOGY METHOD 01/31/2025 10:08 AM EDT [facility] HGB 13.5 11.2 - 15.7 g/dL LAB HEMATOLOGY METHOD 01/31/2025 10:08 AM EDT [facility] HCT 41.2 34.0 - 45.0 % LAB HEMATOLOGY METHOD 01/31/2025 10:08 AM EDT [facility] Platelet Count 383(H) 155 - 369 10*3/uL LAB HEMATOLOGY METHOD 01/31/2025 10:08 AM EDT [facility] MCV 94 79 - 98 fL LAB HEMATOLOGY METHOD 01/31/2025 10:08 AM EDT [facility] MCH 30.7 26.0 - 32.0 pg LAB HEMATOLOGY METHOD 01/31/2025 10:08 AM EDT [facility] MCHC 32.8 30.7 - 35.5 g/dL LAB HEMATOLOGY METHOD 01/31/2025 10:08 AM EDT [facility] RDW 14.6(H) 11.5 - 14.5 % LAB HEMATOLOGY METHOD 01/31/2025 10:08 AM EDT [facility] MPV 10.4 8.8 - 12.5 fL LAB HEMATOLOGY METHOD 01/31/2025 10:08 AM EDT [facility] nRBC 0.0 <=0.0 per 100 WBCs LAB HEMATOLOGY METHOD 01/31/2025 10:08 AM EDT [facility] Differential Type Automated LAB HEMATOLOGY METHOD 01/31/2025 10:08 AM EDT [facility] Neutrophils % 69 % LAB HEMATOLOGY METHOD 01/31/2025 10:08 AM EDT [facility] Lymphocytes % 19 % LAB HEMATOLOGY METHOD 01/31/2025 10:08 AM EDT [facility] Monocytes % 9 % LAB HEMATOLOGY METHOD 01/31/2025 10:08 AM EDT [facility] Eosinophils % 1 % LAB HEMATOLOGY METHOD 01/31/2025 10:08 AM EDT [facility] Basophils % 1 % LAB HEMATOLOGY METHOD 01/31/2025 10:08 AM EDT [facility] Immature Granulocytes % 1 % LAB HEMATOLOGY METHOD 01/31/2025 10:08 AM EDT [facility] Neutrophils Absolute 6.33(H) 1.60 - 6.10 10*3/uL LAB HEMATOLOGY METHOD 01/31/2025 10:08 AM EDT [facility] Lymphocytes Absolute 1.71 1.20 - 3.90 10*3/uL LAB HEMATOLOGY METHOD 01/31/2025 10:08 AM EDT [facility] Monocytes Absolute 0.83 0.30 - 0.90 10*3/uL LAB HEMATOLOGY METHOD 01/31/2025 10:08 AM EDT [facility] Eosinophils Absolute 0.12 0.00 - 0.50 10*3/uL LAB HEMATOLOGY METHOD 01/31/2025 10:08 AM EDT [facility] Basophils Absolute 0.08 0.00 - 0.10 10*3/uL LAB HEMATOLOGY METHOD 01/31/2025 10:08 AM EDT [facility] Immature Granulocytes Absolute 0.07(H) 0.00 - 0.06 10*3/uL LAB HEMATOLOGY METHOD 01/31/2025 10:08 AM EDT [facility] Blood Venous blood specimen / Unknown Venipuncture / Unknown 01/31/2025 8:57 AM EDT 01/31/2025 8:57 AM EDT Narrative [facility] - 01/31/2025 10:08 AM EDT Therapeutic decision making should be based on absolute values, rather than percentages. Sarika Garland APRN LAB BLOOD ORDERABLES Final Result [facility] [address] [place] [address] * (ABNORMAL) Comprehensive Metabolic Panel, Plasma (01/31/2025 8:57 AM EDT) Glucose, Plasma 88 74 - 99 mg/dL 01/31/2025 10:13 AM EDT [facility] BUN, Plasma 6(L) 7 - 21 mg/dL 01/31/2025 10:13 AM EDT [facility] Creatinine, Plasma 0.68 0.60 - 1.10 mg/dL 01/31/2025 10:13 AM EDT [facility] BUN/Creatinine Ratio 9 01/31/2025 10:13 AM EDT [facility] Sodium, Plasma 141 136 - 145 mmol/L 01/31/2025 10:13 AM EDT [facility] Potassium, Plasma 4.0 3.6 - 4.9 mmol/L 01/31/2025 10:13 AM EDT [facility] Chloride, Plasma 104 97 - 107 mmol/L 01/31/2025 10:13 AM EDT [facility] CO2, Plasma 28 22 - 29 mmol/L 01/31/2025 10:13 AM EDT [facility] Anion Gap 9 6 - 16 mmol/L 01/31/2025 10:13 AM EDT [facility] Total Calcium, Plasma 9.2 8.9 - 10.2 mg/dL 01/31/2025 10:13 AM EDT [facility] Total Protein 6.7 6.3 - 7.9 g/dL 01/31/2025 10:13 AM EDT [facility] Albumin, Plasma 3.7 3.5 - 5.2 g/dL 01/31/2025 10:13 AM EDT [facility] AST, Plasma 17 10 - 35 U/L 01/31/2025 10:13 AM EDT [facility] ALT, Plasma 18 10 - 35 U/L 01/31/2025 10:13 AM EDT [facility] Alkaline Phosphatase, Plasma 106(H) 35 - 104 U/L 01/31/2025 10:13 AM EDT [facility] Total Bilirubin, Plasma <0.2(L) 0.2 - 1.1 mg/dL 01/31/2025 10:13 AM EDT [facility] eGFRcr 106.3 mL/min/1.7 3m*2 01/31/2025 10:13 AM EDT [facility] Comment:Reported eGFRcr in m L/min/1.73m2 is based the CKD-EPI 2020 equation that does not use a race coefficient. Blood Venous blood specimen / Unknown Venipuncture / Unknown 01/31/2025 8:57 AM EDT 01/31/2025 8:57 AM EDT us Sarika Garland APRN LAB BLOOD ORDERABLES Final Result [facility] [address] [place] [address] * New Patient: XR Knee (Lateral / [place] / Tunnel / AP Standing with Marker) [...] IMG XR PROCEDURES Final Resul t * TN ARTHROCENTESIS ASPIR&/INJ MAJOR JT/BURSA W/O US (01/22/2025 [...] to verify the correct patient, procedure, equipment, ground support equipment assembler and site/side marked as required. Patient was prepped and draped in the usual sterile fashion. Procedure, treatment alternatives, risks and benefits explained, specific risks discussed (Risks include but are not limited to pain, bleeding, infection, failure to relieve symptoms). Consent was given by the patient. Immediately prior to procedure a time out was called to verify the correct patient, procedure, equipment, ground support equipment assembler and site/side marked as required. Patient was prepped and draped in the usual sterile fashion. us Kavon [facility] IN CLINIC/BEDSIDE ORDERABLES Final Result * Acute Hepatitis Panel (09/03/2024 9:50 AM EDT) Hepatitis B Surf Antigen Negative Negative 09/03/2024 12:23 PM EDT [facility] Hepatitis C Antibody Negative Negative 09/03/2024 12:23 PM EDT [facility] Hepatitis A Antibody IgM Negative Negative 09/03/2024 12:23 PM EDT [facility] Hepatitis B Core Antibody IgM Negative Negative 09/03/2024 12:23 PM EDT [facility] Blood Venous blood specimen / Unknown Venipuncture / Unknown 09/03/2024 9:50 AM EDT 09/03/2024 9:51 AM EDT Sarika Garland APRN LAB BLOOD ORDERABLES Final Result [facility] [address] [place] [address] from Last 3 Months or Most Recently Relevant to Health Maintenance Insurance [facility] MEDICAID Care Teams Rolfer Relationship Specialty Start Date End Date Santhosh Ward MD [address] [place] [address] PCP - General 08/28/20
--- OUTSIDE RECORDS SUMMARY | 2025-02-24 11:47 | XMS_ITS | Encounter Summary ---
Author Organization Healthcare Address [address] [place] [address] Care Team Providers Care Medical Auditor Name Role Phone Santhosh Ward MD Primary Care Provider + [phone] Encounter Details Date Type Department Care Team (Latest Contact Info) Description 01/31/2025 Travel Social History Tobacco Use Types Packs/Day Years [...] energy Not at all 01/31/2025 8:05 AM EDErnestine Jones Poor appetite or overeating Not at all 01/31/2025 8: 05 AM EDT Ernestine Wyatt Feeling bad about yourself - or that you are a failure or have let yourself or your family down Not at all 01/31/2025 8:05 AM EDErnestine Jones Trouble concentrating on thi ngs, such as [...] way Not at all 01/31/2025 8:05 AM EDErnestine Jones Patient Health Questionnaire -9 Score 0 01/31/2025 8:05 AM EDT Ernestine Wyatt * How difficult have these problems made it for you to do your work, take care of things at home, or get along with other people? Answer Date of Assessment Author Not difficult at all 01/31/2025 8:05 AM EDT Ernestine Iyer documented as of this encounter Plan of Treatment Upcoming Encounters Date Type Department Care Team (Late st Contact Info) Description 04/28/2025 9:30 AM EST Office Visit Medical Office Building Surgery Spine & Joint [address] [facility], [address] [place] [address] Darrell Myers MD [address] [facility] [address] [place] [address] 06/03/2025 10:30 AM EST Office Visit [place] [facility] [address] [place] [address] Natalie Maritnez APRN [address] [place] [address] documented as of this encounter Visit Diagnoses Not on filedocumented in this encounter Additional Health Concerns Assessment Noted Time PHQ-9 Depression Total Score: 0 02/01/20 25 8:05 AM EDT A fall risk assessment has been complete d for the patient 01/31/2025 8:05 AM EDT A Body Mass Index follow-up plan has been documented for the patient 01/31/2025 8:38 AM EDT documented as of this encounter Care Teams Medical Auditor Relationship Specialty Start Date End Date Santhosh Ward MD [address] [place] [address] PCP - General 08/28/20 documented as of this encounter
--- OUTSIDE RECORDS SUMMARY | 2025-02-24 11:47 | XMS_ITS | Clinical Summary ---
Author Organization [facility] Address [address] [place] [address] Care Team Providers Care Supply Room Clerk Name Role Phone Unavailable Primary Care Provider [...]
--- OUTSIDE RECORDS SUMMARY | 2025-02-24 11:47 | XMS_ITS | Encounter Summary ---
Author Organization Healthcare Address [address] [place] [address] Care Team Providers Care Supply Teacher Name Role Phone Santhosh Ward MD Primary Care Provider + [phone] Encounter Details Date Type Department Care Team (Latest Contact Info) Description 01/22/2025 Travel Social History Tobacco Use Types Packs/Day [...] Building Surgery Spine & Joint [address] [facility], [address] [place] [address] Darrell Myers MD [address] [place] [address] 06/03/2025 10:30 AM EST Office Visit [place] [facility] Medicine [facility] [address] [place] [address] Natalie Martinez, CLAIMS ACCOUNT SPECIALIST [address] [place] [address] documented as of this encounter [...] documented as of this encounter Care Teams Supply Teacher Relationship Specialty Start Date End Date Santhosh Ward MD [address] [place] [address] PCP - General 08/28/20 documented as of this encounter
--- OUTSIDE RECORDS SUMMARY | 2025-02-24 11:47 | XMS_ITS | Encounter Summary ---
Author Organization Healthcare Address [address] [place] [address] Care Team Providers Care Wreath And Garland Maker Name Role Phone Santhosh Ward MD Primary Care Provider + [phone] Encounter Details Date Type Department Care Team (Late st Contact Info) Description 01/31/2025 Results Follow-Up [facility] Medicine Specialties [address] [place] [address] Sarika Garland M, FISH ROD MAKER [address] [place] [address] Social History Tobacco Use Types [...] things Not at all 01/31/2025 8:05 AM Ernestine Latif Feeling down, depressed, or hopeless Not at all 01/31/2025 8:05 AM Ernestine Latif Patient Health Questionnaire -2 Score 0 01/31/2025 8:05 AM EDErnestine Jones * Question Answer Date of Assessment Author Trouble falling or staying a sleep, or sleeping too much Not at all 01/31/2025 8:05 AM Ernestine Latif Feeling tired or having carmen le energy Not at all 01/31/2025 8:05 AM EDErnestine Joens Poor appetite or overeating Not at all 01/31/2025 8: 05 AM EDErnestine Jones Feeling bad about yourself - or that you are a failure or have let yourself or your family down Not at all 01/31/2025 8:05 AM Ernestine Latif Trouble concentrating on thi ngs, such as reading the newspaper or watching television Not at all 01/31/2025 8:05 AM Ernestine Latif Moving or speaking so slowly that other people could have noticed? Or the opposite - being so fidgety or restless that you have been moving around a lot more than usual. Not at all 01/31/2025 8:05 AM Ernestine Nice Thoughts that you would be b ankur off or hurting yourself in some way Not at all 01/31/2025 8:05 AM Ernestine Latif Patient Health Questionnaire -9 Score 0 01/31/2025 8:05 AM Ernestine Latif * How difficult have these problems made it for you to do your work, take care of things at home, or get along with other people? Answer Date of Assessment Author Not difficult at all 01/31/2025 8:05 AM ZOHREHT Ernestine Iyer documented as of this encounter Plan of Treatment Upcoming Encounters Date Type Department Care Team (Late st Contact Info) Description 04/28/2025 9:30 AM EST Office Visit Medical Office Building [facility] [address], [address] [place] [address] Darrell Myers MD [address] [place] [address] 06/03/2025 10:30 AM EST Office Visit [facility] [address] [place] [address] Natalie Martinez, FISH ROD MAKER [address] [place] [address] documented as of this encounter [...] documented as of this encounter Care Teams Wreath And Garland Maker Relationship Specialty Start Date End Date Santhosh Ward MD [address] [place] [address] PCP - General 08/28/20 documented as of this encounter
--- OUTSIDE RECORDS SUMMARY | 2025-02-24 11:47 | XMS_ITS | Encounter Summary ---
Author Organization Healthcare Address [address] [place] [address] Care Team Providers Care Applications Intern Name Role Phone Santhosh Ward MD Primary Care Provider + [phone] Reason for Referral * Medications - Authorized Specialty Diagnoses / Procedures Referred By Contac t Referred To Contact Diagnoses Psoriatic arthritis ([facility]CC) Sarika Garland APRN [address] [place] [address] Phone: tel: fax: Referral ID Status Reason Start Date Expiration Date V isits Requested Visits Authorized [id number] Authorized 01/31/2025 07/31/2025 1 1 Reason for Visit * Reason Onset Date Comments Breanna Velasquez 01/31/2025 Encounter Details Date Type Department Care Team (Late st Contact Info) Description 01/31/2025 Telephone [facility] Special[facility] [address] [place] [address] Dariusz Albright Social History Tobacco Use Types Packs/Day Years [...] much Not at all 01/31/2025 8:05 AM ZOHREHT Ernestine Wyatt Feeling tired or having carmen [...] as of this encounter Miscellaneous Notes * Telephone Encounter - Heide Carnes PharmD - 02/04/2025 11:52 AM EDT Patient was offered counseling of their specialty medication and declined education. Medication will be delivered on 02/05. * Telephone Encounter - Dariusz Albright - 01/31/2025 8:59 AM EDT Per discussion with provider, Humira has been ordered at the request of the provider for 28 day supply with 3 refills to [facility] pharmacy. Cosigned by Christiano Meng PharmD at 01/31/2025 12:29 PM EDT Associated attestation - Christiano Meng PharmD - 01/31/2025 12:29 PM EDT I attest to the student life vice president's recommendations. Thanks! Kyle Meng documented in this encounter Plan of Treatment Upcoming Encounters Date Type Department Care Team (Late st Contact Info) Description 04/28/2025 9:30 AM EST Office Visit Medical Office Building [facility] [address], [address] [place] [address] Darrell Myers MD [address] [place] [address] 06/03/2025 10:30 AM EST Office Visit [place] [facility] Medicine Specialties [address] [place] [address] Natalie Martinez, KATARINA [address] [place] [address] documented as of this encounter Visit Diagnoses Diagnosis Psoriatic arthritis ([facility])- Primary Psoriatic arthropathy documented in this encounter Additional Health Concerns Assessment Noted Time PHQ-9 Depression Total Score: 0 02/01/20 25 8:05 AM EDT A fall risk assessment has been complete d for the patient 01/31/2025 8:05 AM EDT A Body Mass Index follow-up plan has been documented for the patient 01/31/2025 8:38 AM EDT documented as of this encounter Care Teams Applications Intern Relationship Specialty Start Date End Date Santhosh Ward MD [address] [place] [address] PCP - General 08/28/20 documented as of this encounter
[2025-02-24 12:28] LABS: Hematocrit 40.9 % (37.0-47.0); Hemoglobin 13.4 g/dL (12.2-16.2); Immature Granulocytes % 0.5 %; Mean Corpuscular HGB Conc 32.8 g/dL (31.8-35.4); Mean Corpuscular Hemoglobin 30.5 pg (27.0-31.2); Mean Corpuscular Volume 93.0 fl (81-99); Nucleated Red Blood Cells % 0 %; Platelet Count 392 K/mm3 (142-424); Red Blood Count 4.40 M/mm3 (4.20-5.40); Red Cell Distribution Width-SD 47.8 fL; White Blood Count 6.5 K/mm3 (4.8-10.8)
[2025-02-24 12:36] LABS: Uric Acid 5.9 mg/dl (2.5-6.2)
[2025-02-24 12:41] LABS: C-Reactive Protein 17.3 mg/L (0-4)
== END 2025-02-24 23:59 | disposition home or self-care (01) ==
LOC: LAB 11:44
PROVIDERS: PCP Internal Medicine Adolescent Medicine; Visit Provider Podiatrist
DX: L03.116 Cellulitis of left lower limb (principal); L03.115 Cellulitis of right lower limb
CPT/HCPCS: 36415; 84550; 85025; 85651; 86140